=== PATIENT | male | born 1950 | race Caucasian/White ===

== ENCOUNTER 2017-01-06 17:38 | Inpatient (IN) | payer MEDICARE ==
[~2017-01-06] VITALS: Ht 177.8 cm; Wt 79.3 kg
--- NOTE | ~2017-01-06 | HEMODYNAMI ---
PATIENT:BANDAR NORTH MEDICAL RECORD: [id number] : 46 LOCATION:[place] [address] ADMISSION DATE: 01/06/17 Generatedon:01/10/201715:41 Patient name: BANDAR NORTH Patient #: [id number] SSN: : 1950 Date of study: 01/10/2017 Page: Of Hemodynamic Procedure Report Patient Data Patient Demographics Procedure consent was obtained First Name: BANDAR Gender: Male Last Name: CAN : 1950 Patient #: [id number] Age: 66 year(s) Race: Unknown Additional ID: [id number] Contact details Address: [address] [place] [address] ROAD State: [place] City: [place] Zip code: [address] Admission Admission Data Admission Date: 01/06/2017 Admission Time: 23:51 Room #: [facility] Procedure Procedure Types Cath Procedure Diagnostic Procedure NGUYEN Procedure Description Procedure Date Procedure Date: 01/10/2017 Procedure Start Time: 15:18 Procedure End Time: 15:32 Procedure Staff Name Function Bayron Roth MD Performing Physician Janette Brewer RN Nurse Miley Quiñones RT Monitor Seema Aquino RT Monitor Procedure Data Cath Procedure Fluoroscopy Diagnostic fluoroscopy Total fluoroscopy Time: 0 time: 0 min min Diagnostic fluoroscopy Total fluoroscopy dose: 0 dose: 0 mGy mGy Contrast Material Contrast Material Type Amount (ml) Isovue 300 0 Estimated blood loss: 0 ml Procedure Complications No complications Procedure Medications Medication Administration Route Dosage Hydralizine I.V. 10 mg Oxygen NC 2 l/min Refer to Anesthesia Notes for Sedation Medications Hemodynamics Rest Pre Cath Intra NCS Post Cath Vital Signs Time Heart Resp SPO2 NIBP (mmHg) Rhythm Pain Sedation Rate (ipm) (%) Status Level (bpm) 14:39:27 68 20 94 181/115(140) NSR 0 (11) 10(A) , No pain 14:43:52 69 20 93 180/95(156) NSR 0 (11) 10(A) , No pain 14:48:14 65 17 94 193/101(159) NSR 0 (11) 10(A) , No pain 14:53:46 73 22 94 192/104(150) NSR 0 (11) 10(A) , No pain 14:58:12 65 15 93 191/101(168) NSR 0 (11) 10(A) , No pain 15:02:38 66 21 93 210/105(167) NSR 0 (11) 10(A) , No pain 15:07:13 68 16 95 211/109(163) NSR 0 (11) 10(A) , No pain 15:11:47 70 30 93 189/99(169) NSR 0 (11) 10(A) , No pain 15:16:13 52 19 92 194/109(141) NSR 0 (11) 10(A) , No pain 15:20:42 67 21 94 191/94(157) NSR 0 (11) 9(A) , No pain 15:25:08 67 20 94 177/99(145) NSR 0 (11) 9(A) , No pain 15:29:34 67 14 99 169/89(103) NSR 0 (11) 9(A) , No pain 15:35:53 67 24 99 150/68(111) NSR 0 (11) 10(A) , No pain Medications Time Medication Route Dose Verified Delivered Reason Notes Effecti veness by by 14:38:03 Oxygen NC 2 Bayron Vallesie used for l/min Gonzalez Brewer RN procedure 15:09:14 Hydralizine I.V. 10 mg Bayronmandie Savage for Gonzalez Brewer RN hypertension 15:15:07 Refer to Bayron Buffie Anesthesia Gonzalez Brewer RN Notes for Sedation Medications Procedure Log Time Note 14:08:24 Miley Counts RT(R) sent for patient. Start room use. 14:08:25 Time tracking: Regular hours 14:08:29 Plan of Care:Hemodynamics will remain stable., Cardiac rhythm will remain stable., Comfort level will be maintained., Respiratory function will remain adequate., Patient/ family verbilizes understanding of procedure., Procedure tolerated without complication., Recovers from procedure without complications.. 14:34:41 Patient arrived from Other to CCL 2. Patient remains on bed/stretcher for procedure. 14:34:43 Warm blankets applied, and neris hugger turned on for patient comfort. 14:34:43 Correct patient and procedure confirmed by team. 14:34:45 Signed procedure consent form obtained from patient. 14:34:45 ECG and BP/O2 sat monitors applied to patient. 14:35:44 Full Disclosure recording started 14:38:03 Oxygen 2 l/min NC was administered by Janette Brewer RN; used for procedure; 14:38:20 Vital chart was started 14:38:36 Rhythm: sinus rhythm 14:38:43 H&P Date Dictated: 01/10/2017 Within 30 days and on chart.. 14:38:45 Pre-procedure instructions explained to patient. 14:38:45 Pre-op teaching completed and patient verbalized understanding. 14:38:46 Family unavailable. 14:38:53 Patient NPO since Midnight. 14:41:09 Is the patient allergic to Iodine/contrast media? No. 14:41:10 Is patient on blood thinner?No 14:41:12 Patient diabetic? Yes. 14:41:15 Previous problem with sedation/anesthesia? No ? 14:41:15 Snore? Yes 14:41:17 Sleep apnea? Yes 14:41:18 Deviated septum? No 14:41:19 Opens mouth fully? Yes 14:41:20 Sticks out tongue? Yes 14:41:22 Airway obstruction? No ? 14:41:23 Dentures? No ? 14:41:26 Patient pain scale 0/10 ?. 14:41:34 IV patent on arrival in right forearm with 0.9% NaCl at [facility]. 14:41:37 Lab results completed and on chart. 14:41:41 Alarms reviewed by Zacarias Irby 14:45:48 Emory Talbot Surfboard Designer present for NGUYEN. 15:09:14 Hydralizine 10 mg I.V. was administered by Janette Brewer RN; for hypertension; 15:15:07 Refer to Anesthesia Notes for Sedation Medications was administered by Janette Brewer RN; ; 15:17:13 Physician arrived 15:17:13 --------ALL STOP TIME OUT------ 15:17:14 Final Timeout: patient, procedure, and site verified with staff and physician. All members of the team are in agreement. 15:17:27 Physical assessment completed. ASA score P 2 - A patient with mild systemic disease as per Bayron Roth MD. 15:17:31 Sedation plan: TIVA Propofol 15:18:07 Meghan Benjamin present and monitoring patient for TIVA. 15:18:10 Procedure started. 15:18:17 NGUYEN started. 15:30:32 NGUYEN completed. 15:30:48 Procedure ended.(Physican Out) 15:31:09 Fluoroscopy time 00.00 minutes. 15:31:12 Fluoroscopy dose: 0 mGy 15:31:12 Flurop Dose total: 0 15:31:15 Contrast amount:Isovue 300 0ml. 15:31:17 Sharps counted by scrub and verified by R.N. 15:31:22 Post procedure rhythm: unchanged. 15:31:24 Estimated blood loss: 0 ml 15:31:26 Post procedure instruction explained to patient.Patient verbalizes understanding. 15:31:26 Patient needs reinforcement of post procedure teaching. 15:31:33 Procedure and supply charges have been captured, reviewed, submitted and are correct. 15:31:37 Procedure Complication : No complications 15:31:39 Vital chart was stopped 15:31:40 See physician's report for complete and final results. 15:32:13 Report given to Med II. 15:32:16 Patient transfered to Med II with Stretcher. 15:32:39 Procedure ended. 15:32:39 Full Disclosure recording stopped 15:32:44 End room use (Document Last) Signature Audit [place] Stage Time Signature Unsigned Intra-Procedure 01/10/2017 Seema Aquino 3:41:27 PM RT(R) Signatures Monitor : Miley Signature : Counts RT Date : Time : Monitor : Seema Aquino RT Signature : Date : Time : [address] [place] [address]
[2017-01-06 22:29] LABS: BASOPHILS 0.7 % (0-2); EOSINOPHILS 0.7 % (0-7); HEMATOCRIT 27.5 % (42.0-54.0); HEMOGLOBIN 8.3 g/dL (13.5-17.5); IMMATURE GRANULOCYTES 0.2 % (0-5); LYMPHOCYTES 26.8 % (15-50); MCH 24.3 pg (26.0-34.0); MCHC 30.2 g/dL (31.0-37.0); MCV 80.6 fL (80.0-100.0); MEAN PLATELET VOLUME 9.2 fL (7.4-10.4); MONOCYTES 6.8 % (2-11); NEUTROPHILS 64.8 % (40-80); PLATELET COUNT 266 10x3/uL (130-400); RBC 3.41 10x6/uL (4.20-6.10); RDW 14.9 % (11.5-14.5); WBC 4.3 10x3/uL (4.8-10.8)
[2017-01-06 22:56] LABS: ALBUMIN 3.4 g/dL (3.4-5.0); ANION GAP 12.3 mmol/L (8-16); BILIRUBIN - TOTAL 0.54 mg/dL (0.2-1.3); CARBON DIOXIDE 29.8 mmol/L (21.0-32.0); CREATININE - SERUM 1.2 mg/dL (0.6-1.3); POTASSIUM - SERUM 3.1 mmol/L (3.5-5.1); PROTEIN - SERUM 6.8 g/dL (6.4-8.2)
[2017-01-06 23:18] LABS: APPEARANCE CLEAR (CLEAR); BILIRUBIN NEGATIVE (NEGATIVE); COLOR YELLOW (YELLOW); GLUCOSE NEGATIVE (NEGATIVE); KETONE NEGATIVE (NEGATIVE); LEUKOCYTE ESTERASE NEGATIVE (NEGATIVE); NITRITE NEGATIVE (NEGATIVE); PROTEIN 2+ mg/dL (NEGATIVE); UROBILINOGEN NORMAL (NORMAL)
--- NOTE | 2017-01-07 00:20 | NUR ---
RECEIVED PATIENT FROM ER VIA WHEELCHAIR TO ROOM 1218 ACCOMPANIED BY HOSPITAL STAFF. INTRODUCED SELF. V/S TAKEN. INITIAL ADMISSION ASSESSMENT AND HISTORY DONE. STATUS Dx: CHF/SCROTAL SWELLING. SALINE LOCK TO L AC INTACT. O2 2L/NC. ORIENTED TO ROOM AND BED CONTROLS. PLAN OF CARE INITIATED.
[2017-01-07 00:22] VITALS: BP 154/81; BMI 33.7
--- NOTE | 2017-01-07 02:35 | NUR ---
HOOKED UP TO TELEMETRY. SINUS BRADYCARDIA--58/min.
--- NOTE | 2017-01-07 04:30 | NUR ---
EYES CLOSED. LEFT UNDISTURBED.
--- NOTE | 2017-01-07 06:27 | NUR ---
MEDICAL POLICY SPECIALIST HERE TO DRAW AM LAB.
[2017-01-07 06:59] LABS: BASOPHILS 0.5 % (0-2); EOSINOPHILS 0.5 % (0-7); HEMATOCRIT 27.1 % (42.0-54.0); HEMOGLOBIN 8.3 g/dL (13.5-17.5); IMMATURE GRANULOCYTES 0.2 % (0-5); MCH 24.6 pg (26.0-34.0); MCHC 30.6 g/dL (31.0-37.0); MCV 80.2 fL (80.0-100.0); MEAN PLATELET VOLUME 9.1 fL (7.4-10.4); MONOCYTES 9.5 % (2-11); NEUTROPHILS 65.3 % (40-80); PLATELET COUNT 248 10x3/uL (130-400); RBC 3.38 10x6/uL (4.20-6.10); RDW 15.1 % (11.5-14.5); WBC 4.1 10x3/uL (4.8-10.8)
[2017-01-07 07:15] VITALS: BP 145/54
[2017-01-07 09:34] VITALS: Ht 177.8 cm; Wt 79.3 kg
[2017-01-07 10:14] LABS: % SATURATION 5 % (15-55); IRON 24 ug/dl (35-150); TOTAL IRON BIND CAPACITY 443 ug/dl (260-445); UNSAT IRON BIND CAPACITY 419 ug/dl (150-375)
[2017-01-07 10:24] LABS: THYROID STIMULATING HORMONE 3.42 uIU/mL (0.36-3.74)
--- NOTE | 2017-01-07 10:25 | NUR ---
MR NORTH CALLED ME TO ROOM FOR STAND BY ASSISTANCE TO BATHROOM. PT USED WALKER AND TOLERATED WELL. PT VOIDED. ASSISTED BACK TO BED. BED IS LOW, SIDE RAILS UP X 2 AND CALL LIGHT IN REACH.
--- NOTE | 2017-01-07 11:30 | NUR ---
PT IS HERE TO EVALUATE PT AMBULATING WITH WALKER. PT WALKING IN HALLWAYS. TOLERATING VERY WELL.
--- NOTE | 2017-01-07 12:33 | NUR ---
PT IS UP TO BATHROOM WITH WALKER AND ASSISTANCE. HAD BM. [PT BACK TO BEDSIDE TO EAT.
[2017-01-07 19:25] VITALS: BP 142/72
--- NOTE | 2017-01-07 19:25 | NUR ---
ASSESSMENT PER FLOW SHEET.PT WITHOUT DISTRESS.DENIES PAIN AT PRESENT. SCROTAL AREA ELEVATED. FALL BAND ON AND DOOR OPEN TO MONITOR PT.URINAL PROVIDED. CALL LIGHT IN REACH
--- NOTE | 2017-01-07 20:00 | NUR ---
ASSISTED TO THE BATHROOM AND BACK TO BED. AMBULATED WITH A WALKER.
--- NOTE | 2017-01-07 20:27 | NUR ---
RT HERE TO GIVE BREATHING TREATMENT.
--- NOTE | 2017-01-07 21:19 | NUR ---
FSBS 168mg/dl. 2units HUMALOG GIVEN PER LOW RESISTANCE SCALE.
[2017-01-08] VITALS (9 sets, daily range): BP systolic 153–183; BP diastolic 70–89
--- NOTE | 2017-01-08 00:07 | NUR ---
V/S RE-CHECKED. BP 158/71. URINAL EMPTIED.
--- NOTE | 2017-01-08 04:54 | NUR ---
SITTING ON SIDE OF BED. HAT MODEL HERE TO DRAW AM LAB/V/S TAKEN. BP 156/70. URINAL EMPTIED.
[2017-01-08 05:44] LABS: BASOPHILS 0.2 % (0-2); EOSINOPHILS 0.4 % (0-7); IMMATURE GRANULOCYTES 0.2 % (0-5); LYMPHOCYTES 18.7 % (15-50); MCH 23.8 pg (26.0-34.0); MCV 79.3 fL (80.0-100.0); MONOCYTES 8.3 % (2-11); NEUTROPHILS 72.2 % (40-80); PLATELET COUNT 219 10x3/uL (130-400); RDW 14.8 % (11.5-14.5)
[2017-01-08 05:47] LABS: WBC 5.6 10x3/uL (4.8-10.8)
[2017-01-08 05:48] LABS: HEMOGLOBIN 6.9 g/dL (13.5-17.5)
--- NOTE | 2017-01-08 05:57 | NUR ---
CRITICAL HGB OF 6.9. CALL PLACED TO KEIKO HANNA.
--- NOTE | 2017-01-08 06:03 | NUR ---
JACQUES CANADA APN RETURNED CALL WITH NEW ORDERS.
[2017-01-08 06:34] LABS: ALBUMIN 2.8 g/dL (3.4-5.0); ANION GAP 8.4 mmol/L (8-16); BILIRUBIN - TOTAL 0.41 mg/dL (0.2-1.3); CALCIUM 9.8 mg/dL (8.5-10.1); CREATININE - SERUM 1.1 mg/dL (0.6-1.3); POTASSIUM - SERUM 3.4 mmol/L (3.5-5.1); PROTEIN - SERUM 5.9 g/dL (6.4-8.2); THYROID STIMULATING HORMONE 3.54 uIU/mL (0.36-3.74)
[2017-01-08 07:11] LABS: BASOPHILS 0.4 % (0-2); EOSINOPHILS 0.5 % (0-7); HEMATOCRIT 25.6 % (42.0-54.0); HEMOGLOBIN 7.9 g/dL (13.5-17.5); IMMATURE GRANULOCYTES 0.2 % (0-5); LYMPHOCYTES 15.8 % (15-50); MCH 24.5 pg (26.0-34.0); MCHC 30.9 g/dL (31.0-37.0); MCV 79.3 fL (80.0-100.0); MEAN PLATELET VOLUME 8.8 fL (7.4-10.4); NEUTROPHILS 76.1 % (40-80); PLATELET COUNT 214 10x3/uL (130-400); RBC 3.23 10x6/uL (4.20-6.10); RDW 14.8 % (11.5-14.5); WBC 5.6 10x3/uL (4.8-10.8)
--- NOTE | 2017-01-08 07:30 | NUR ---
PT IS RECEIVED THIS AM SITTING UP ON SIDE OF BED. WAITING FOR BREAKFAST. VSS. SALINE LOCK LAC PATENT. GEN- AWAKE AND ALERT. LUNGS- CLEAR. HEART- RRR. ABD-SOFT, NONTENDER. EXT- EDEMA NOTED. BED IS LOW, SIDE RAILS UP X 2 AND CALL LIGHT IN REACH.
[2017-01-08 10:18] LABS: FOLATE (FOLIC ACID) - SERUM 13.3 ng/mL (>3.0)
--- NOTE | 2017-01-08 10:30 | NUR ---
PT IS SLEEPING. BED IS LOW, SIDE RAILS UP X 2 CALL LIGHT IN REACH.
--- NOTE | 2017-01-08 14:30 | NUR ---
PT RECEIVING BREATHING TREATMENT AT THIS TIME. TOLERATING WELL.
--- NOTE | 2017-01-08 17:04 | NUR ---
PT'S BS Was 158. 2units of humalog insulin given.
--- NOTE | 2017-01-08 17:37 | EC ---
PATIENT:BANDAR NORTH DATE OF SERVICE: 01/06/17 SEX: M MEDICAL RECORD: [id number] DATE OF : [birth year] [facility] AGE OF PATIENT: 66 ADMISSION DATE: 01/06/17 REFERRING PHYSICIAN: INTERPRETING PHYSICIAN: YOBANY ROTH MD ECHOCARDIOGRAM REPORT ECHO CHARGES 4 ECHO COMPLETE CLINICAL DIAGNOSIS: CHF HX HTH/CHF ECHOCARDIOGRAPHIC MEASUREMENTS (adult normal given) AC root (d.<3.7cm) 3.9 cm LV Septum d (<1.2 cm> 2.0 cm Valve Excursion 2.3 cm LV Septum (systole) 2.5 cm Left Atria (s.<4.0cm> 4.8 cm LVPW d(<1.2cm) 2.1 cm RV (d.<2.3cm) 6.1 cm LVPW (sytole) 2.0 cm LV diastole(<5.6CM) 5.4 cm MV E-F(>70mm/sec) cm LV systole 2.3 cm LVOT Diameter 2.4 cm MV exc.(>10mm) 1.8 cm Est.ejection fraction (50-75%) % Pericardial Effusion Y DOPPLER: LVIT cm/sec A 85.0 cm/sec E 109 cm/sec LA cm/sec RVSP 53 mmHg LVOT 138 cm/sec AOP1/2T m/s Asc. Ao 214 cm/sec RVOT 97 cm/sec RA cm/sec PA 145 cm/sec AV Gradient Peak 18.28mmHg AV Mean 8.48 mmHg AV Area 2.9 cm MV Gradient Peak 10.21mmHg MV Mean 3.30 mmHg MV Area cm COMMENTS: Assistant Store Manager Operations: Pino ROONEY Booking Manager: 4 Dr. Roth TAPE# PACS DATE OF SERVICE: 01/07/2017 Echocardiographic Report FINDINGS: 1. Left ventricle has moderate concentric left ventricular hypertrophy. Inflow characteristics into the left ventricle appeared to be normal grossly and there does not appear to be any significant regional wall motion abnormalities. 2. The right ventricle is enlarged in the moderate to severe enlargement range. The overall function of the RV appears to be normal. ECHOCARDIOGRAM REPORT [id number] BANDAR NORTH 3. The pulmonic valve is not well visualized. There is mild pulmonic regurgitation. 4. The aortic valve is mildly sclerotic. There is no evidence of significant aortic valve regurgitation or stenosis. 5. The mitral valve is grossly normal. 6. The right ventricular systolic pressure is elevated between 40 and 50 mmHg. 7. Pericardium shows a mild to moderate pericardial effusion. We will have Respimedic measurements, but there does not appear to be any gross tamponade physiology; however, it would be reasonable to repeat to make sure. 8. The interatrial septum is very mobile and even looks as if there may be an interatrial septal aneurysm. 9. The left atrium has what appears to be a mass, it is more sessile in nature than pedunculated, seen best in only 2 views, but does not appear to be artifact. 10. The IVC is not demonstrated on this study. CONCLUSIONS: This patient has hypertensive heart disease with some evidence of mild left atrial enlargement and right atrial and right ventricular enlargement with moderate pulmonary hypertension. Of note is the possibility of a mass in the left atrium itself. At this point, I would recommend maybe going forward with a transesophageal echocardiogram if clinically appropriate. TRANSINT:[id number] Voice Confirmation ID: [id number] DOCUMENT ID: [id number] YOBANY ROTH MD at 1737 CC: [id number] DICTATION DATE: 01/07/17 1655 GARAGE WORKER: 01/07/172045 ADM IN [facility] [address] [place] [address]
--- NOTE | 2017-01-08 19:13 | NUR ---
PT IS SLEEPING. BED IS LOW, SIDE RAILS UP X 2 . CALL LIGHT IN REACH.
--- NOTE | 2017-01-08 19:35 | NUR ---
SPOKE TO GUDELIA CANADA, NURSE PRACTITIONER, PRBC VERIFIED FOR ADMINISTRATION, ORDERS RECEIVED TO ADM 2 UNITS AND ADM LASIX 20MG AFTER FIRST UNIT X 1 DOSE
--- NOTE | 2017-01-08 19:42 | NUR ---
PM ROUNDS MADE, UPON ENTERING ROOM, PT IS STANDING AT SIDE OF BED, PT REPORTS NEEDING TO HAVE A BM, PT INST TO USE CALL LIGHT AND WALKER WHEN NEEDING TO GET UP, PT VERBALIZES UNDERSTANDING, ASSISTED PT TO BR, PT HAD LARGE BROWN BM, PT CLEANS SELF UP, PT BACK TO BED, STOOL SAMPLE COLLECTED, EMPTIED 500 MLS OF CLEAR YELLOW URINE FROM URINAL, INFORMED PT THAT HE WILL BE GETTING BLOOD, PT VERBALIZES UNDERSTANDING, INQUIRES ABOUT HOW MANY, INFORMED PT 2 UNIT, PT DENIES FURTHER QUESTIONS
--- NOTE | 2017-01-08 19:48 | NUR ---
LAB NOTIFIED FOR BLOOD
--- NOTE | 2017-01-08 19:49 | NUR ---
SPOKE TO CORBY HATHAWAY RN, REGARDING RATE OF INFUSION FOR THIS PT, SHE SAID TO RUN IT NO MORE THAN 125ML/HR DUE TO CHF
--- NOTE | 2017-01-08 20:45 | NUR ---
ASSESSMENT PER FLOW SHEET, VS PER AJAY ESPINOZA, RN, PT REPORTS FLATUS, VOIDING BY SELF WITH NO DIFFICULTY, CONSENTS SIGNED AND WITNESSED
--- NOTE | 2017-01-08 20:55 | NUR ---
AJAY ESPINOZA RN OBTAINED FSBS, ADM 2100 MEDS PER MD ORDERS, AJAY ESPINOZA RN ADM INSULIN, VERIFIED PER THIS RN AND AJAY ESPINOZA RN, RESP TO ROOM FOR TREATMENT
--- NOTE | 2017-01-08 21:40 | NUR ---
FIRST UNIT OF PRBC STARTED, VS INITIATED, VERIFIED PER THIS RN AND AJAY ESPINOZA, RN, AJAY ESPINOZA RN CONTINUES AT BEDSIDE
--- NOTE | 2017-01-08 21:55 | NUR ---
FIRST UNIT INFUSING, NO SIGNS OR SYMPTOMS FROM TRANSFUSION, AJAY ESPINOZA, JAYLIN IN ROOM FOR MONITORING
--- NOTE | 2017-01-08 22:25 | NUR ---
PT AWAKE, VS CONTINUE, DENIES NEEDS OR PAIN
--- NOTE | 2017-01-08 23:10 | NUR ---
IV SITE NOTED TO BE LEAKING, SMALL KNOT NOTED AT END OF IV SITE, IV NOT PATENT AT THIS TIME, IV REMOVED, TIP INTACT, PRESSURE HELD, BANDAID APPLIED, INFORMED PT I WILL NEED TO START A NEW IV, PT VERBALIZES UNDERSTANDING
--- NOTE | 2017-01-08 23:30 | NUR ---
EUGENIA AMANDA RN ON UNIT TO START AN IV, PT IS USING THE URINAL AT THIS TIME, INST TO USE CALL LIGHT WHEN FINISHED
--- NOTE | 2017-01-08 23:40 | NUR ---
18 GAUGE IV STARTED PER EUGENIA AMANDA RN, FIRST ATTEMPT, IN RIGHT FA, FLSUHED WITH NO DIFFICULTY, PRBC RESTARED AT 125 ML/HR, VS RESTARTED, EMPTIED 300 MLS OF YELLOW URINE FROM URINAL, PT DENIES NEEDS OR PAIN AT THIS TIME
[2017-01-09] VITALS (14 sets, daily range): BP systolic 145–182; BP diastolic 58–88
--- NOTE | 2017-01-09 00:15 | NUR ---
PT RESTING WITH EYES CLOSED, RESP QUIET, NO DISTRESS NOTED, LEFT UNDISTURBED AT THIS TIME, VS CONTINUE
--- NOTE | 2017-01-09 01:00 | NUR ---
FIRST UNIT FINISHED INFUSING, PT DENIES ANY REACTION TO TRANSFUSION
--- NOTE | 2017-01-09 01:29 | NUR ---
FLUSH COMPLETED AFTER FIRST UNIT, BLOOD TUBING CHANGED, NS INFUSING AT 50ML/HR, ADM LASIX 20MG SIVP PER MD ORDERS, SEE EMAR, INFORMED PT THAT WE WILL START 2ND UNIT IN ABOUT 30 MINUTES, PT VERBALIZES UNDERSTANDING, DENIES NEEDS OR PAIN AT THIS TIME
--- NOTE | 2017-01-09 02:00 | NUR ---
PT FINISHED USING THE URINAL, EMPTIED 100 MLS FROM URINAL, INFORMED PT THAT 2ND UNIT WILL BEGIN
--- NOTE | 2017-01-09 02:05 | NUR ---
Second unit of PRBC's started. VS initiated. Verified by this nurse, Ute Denton RN and Saba Denton RN. This nurse, Ute Denton RN remains in room with patient x 15 minutes for observation.
--- NOTE | 2017-01-09 03:26 | NUR ---
PT POOL NURSE LIGHT, PT REPORTS KNOCKING CUP OF WATER OFF OF BEDSIDE TABLE WHEN REACHING FOR THE URINAL, INFORMED PT THAT WAS OK, CUP PICKED UP, PT REQUESTED AND SERVED FRESH H20, PT DENIES FURTHER NEEDS
--- NOTE | 2017-01-09 03:50 | NUR ---
PT FELT CUTTING MACHINE OPERATOR, PT REPORTS SPILLING SOME URINE ON HIMSELF, PT CLEANED UP WITH WET WARM WASH CLOTHS, PINK PAD AND TOP SHEET CHANGED, PT STATES "I STILL NEED TO FINISH PEEING", PT HANDED URINAL, VOIDED 195 MLS OF YELLOW URINE BY SELF WITH NO DIFFICULTY, EMPTIED URINAL, PT REQUESTED AND PROVIDE BOX OF TISSUE, PT DENIES FURTHER NEEDS OR PAIN, VS CONTINUE
--- NOTE | 2017-01-09 04:30 | NUR ---
Second unit of PRBC's complete.
--- NOTE | 2017-01-09 05:25 | NUR ---
ADM 0600 MED PER MD ORDERS, SEE EMAR WITH FRESH H20, AJAY ESPINOZA RN OBTAINS LAST SET OF VS AFTER INFUSION OF PRBC AND DOES I&O'S, PT DENIES NEEDS OR PAIN AT THIS TIME
[2017-01-09 06:05] LABS: BASOPHILS 0.4 % (0-2); HEMATOCRIT 27.5 % (42.0-54.0); HEMOGLOBIN 8.8 g/dL (13.5-17.5); IMMATURE GRANULOCYTES 0.2 % (0-5); LYMPHOCYTES 14.4 % (15-50); MCH 25.3 pg (26.0-34.0); MEAN PLATELET VOLUME 8.7 fL (7.4-10.4); MONOCYTES 8.1 % (2-11); NEUTROPHILS 75.9 % (40-80); PLATELET COUNT 194 10x3/uL (130-400); RBC 3.48 10x6/uL (4.20-6.10); RDW 14.9 % (11.5-14.5); WBC 5.1 10x3/uL (4.8-10.8)
--- NOTE | 2017-01-09 06:13 | NUR ---
FSBS OBTAINED PER AJAY ESPINOZA RN, SEE FLOW SHEET
[2017-01-09 06:38] LABS: ANION GAP 8.6 mmol/L (8-16); BILIRUBIN - TOTAL 0.9 mg/dL (0.2-1.3); CALCIUM 9.9 mg/dL (8.5-10.1); CARBON DIOXIDE 33.9 mmol/L (21.0-32.0); CREATININE - SERUM 1.1 mg/dL (0.6-1.3); POTASSIUM - SERUM 3.5 mmol/L (3.5-5.1); PROTEIN - SERUM 6.3 g/dL (6.4-8.2)
--- NOTE | 2017-01-09 06:53 | NUR ---
PT PARTS SALES MANAGER LIGHT, PT UP TO BR VIA WALKER WITH ASSISTANCE, PT TO COMMODE, EMPTIED 250 MLS FROM URINAL, PT INST TO USE CALL LIGHT WHEN FOR ANY ASSISTANCE AND WHEN FINISHED, PT VERBALIZES UNDERSTANDING
--- NOTE | 2017-01-09 07:00 | NUR ---
SHIFT REPORT TO JC ZULUAGA RN
--- NOTE | 2017-01-09 08:29 | NUR ---
received in room sitting on side of bed. alert. oriented. ns lock to rt forearm. denies pain o2 on nc at 2l/min. abd soft +bs x4. resp non-laobred. no distress noted.
--- NOTE | 2017-01-09 11:25 | NUR ---
SITTING UP ON SIDE OF BED. ALERT ORIENTATED TO SURROUNDINGS. HAS NO NEEDS AT THIS TIME.
--- NOTE | 2017-01-09 13:00 | NUR ---
PT IS UP TO BATHROOM AND HAD A BM. THEN HE WAS ASSISTED TO SHOWER. PT TOLERATED WELL. LINENS CHANGED , CLEAN GOWN AND PT BACK TO BED. ELECTRODES CHANGED ON TELEMETRY. SALINE LOCK WAS COVERED. THEN REMOVED COVER AFTER SHOWER.
--- NOTE | 2017-01-09 13:28 | NUR ---
MR PIERCE IS SITTING ON THE SIDE OF THE BED. OFFERS NO COMPLAINTS.
--- NOTE | 2017-01-09 13:42 | NUR ---
* Is the patient Alert and Oriented? Yes 0 * How many steps to enter\exit or inside your home? 0 0 * Pharmacy [facility] 0 * Preadmission Environment Assisted Living 0 * Facility Name [facility] [phone] * ADLs Partial Dependent 0 * Partial ADLs (Assistance needed) Ambulation Bathing Medication Management 0 * Equipment Cane CPAP Rolling Walker Shower Chair 0 * Additional services required to return to the preadmission environment? Yes 0 * Can the patient safely return to the preadmission environment? Yes 0 * Has this patient been hospitalized within the prior 30 days at any hospital? No Patient Name: BANDAR NORTH Admission Status: ER Accout number: [id number] Admission Date: 01-06-2017 : 1950 Admission Diagnosis: Attending: CRISTIAN CHAN Current LOS: 3 Anticipated DC Date: 01-10-2017 Planned Disposition: Assisted Living Primary Insurance: MEDICARE A & B Discharge Planning Comments: CM met with patient to assess dc plans/needs. Patient states he lives at [facility]. He primarily uses a walker for mobility but also has a cane. He requires assistance with bathing. He states he goes to the dining room for meals. At dc, he will return to [facility]. Spoke with Miri at [facility] ([phone]) - she states their transport van will pick him up at discharge. She requests referral be sent to [facility] for physical therapy. Patient is agreeable. SHA signed for [facility]. Initial referral faxed. CM will follow. Seo Manager: Saba Lopez
--- NOTE | 2017-01-09 14:36 | NUR ---
NORTH UP TO BATHROOM TO HAVE A BM. USED WALKER.
--- NOTE | 2017-01-09 18:19 | NUR ---
PT IS RESTING IN BED. OFFERS NO COMPLAINTS. BED IS LOW, SIDE RAILS UP X 3 AND CALL LIGHT IN REACH. PT ATE A GOOD DINNER.
--- NOTE | 2017-01-09 19:30 | NUR ---
PM ROUNDS MADE, INFORMED PT THAT I WILL RETURN SHORTLY TO DO ASSESSMENT, PT VERBALIZES UNDERSTANDING, DENIES NEEDS AT THIS TIME
--- NOTE | 2017-01-09 20:25 | NUR ---
PT RECEIVED RESP TREATMENT AT THIS TIME
--- NOTE | 2017-01-09 20:53 | NUR ---
ASSESSMENT PER FLOW SHEET, VS OBTAINED, SALINE LOCK IN RIGHT FA INTACT WITH NO REDNESS OR EDEMA, EMPTIED 400 MLS OF CLEAR YELLOW URINE FROM URINAL, PT REPORTS THAT IS 2 VOIDS, TELEMETRY IN PLACE, LANNY ZURITA RN OBTAINS FSBS AND ADM 2100 MEDS PER MD ORDERS, SEE EMAR, SNACK PROVIDED, PT DENIES FURTHER NEEDS OR PAIN AT THIS TIME
--- NOTE | 2017-01-09 21:25 | NUR ---
PT STANDING AT SIDE OF BED, PT STATES "I JUST NEEDED TO STAND UP FOR A FEW MINUTES", PT INST ON FALL PRECAUTIONS, PT VERBALIZES UNDERSTANDING, DENIES NEEDS OR PAIN AT THIS TIME
--- NOTE | 2017-01-09 22:26 | NUR ---
PT AWAKE, LAYING IN BED, WATCHING TV, DENIES NEEDS OR PAIN AT THIS TIME, BED IN LOW POSITION, SIDE RAILS X 2, CALL LIGHT IN REACH
--- NOTE | 2017-01-09 23:20 | NUR ---
PT AWAKE, VS OBTAINED, EMPTIED URINAL, SALINE LOCK FLUSHED, ADM LASIX SIVP OVER 4 MINUTES, SALINE LOCK FLUSHED, PT DENIES NEEDS OR PAIN AT THIS TIME, BED IN LOW POSITION, SIDE RAILS X 2, CALL LIGHT IN REACH
--- NOTE | 2017-01-10 00:28 | NUR ---
PT RESTING WITH EYES CLOSED, RESP QUIET, NO DISTRESS NOTED, LEFT UNDISTUREBED AT THIS TIME
--- NOTE | 2017-01-10 02:18 | NUR ---
PT INSIDE CONTRACTOR SALES LIGHT, PT UP IN BR , PT REPORTS BM, PT BACK TO BED, EMPTIED 250 MLS FROM URINAL, PT DENIES NEEDS OR PAIN, BED IN LOW POSITION, SIDE RAILS X 2, CALL LIGHT IN REACH
--- NOTE | 2017-01-10 02:53 | NUR ---
PT GLASSWARE SELECTOR LIGHT, UP IN BR, REPORTS HE IS HAVING TROUBLE VOIDING, PT INST TO GET BACK INTO BED, BLADDER SCAN DONE, 886 MLS NOTED, INFORMED PT THAT I WILL CALL THE DOCTOR, PT VERBALIZES UNDERSTANDING
--- NOTE | 2017-01-10 02:55 | NUR ---
CALLED ANSWERING SERVICE, JACQUES CANADA NP CRIMINAL JUSTICE SOCIAL WORKER GERMAN, LEFT MESSAGE WITH ANSWERING SERVICE FOR HER TO CALL
--- NOTE | 2017-01-10 03:03 | NUR ---
JACQUES CANADA NP, CALLS UNIT, REPORT OF PT UNABLE TO VOID AND AMOUNT FROM BLADDER SCANNER, ORDERS TO PLACE YARBROUGH
[2017-01-10 03:30] VITALS: BP 170/90
--- NOTE | 2017-01-10 03:30 | NUR ---
VS OBTAINED, INFORMED PT THAT WE WILL BE INSERTING A CATHETER, PT VERBALIZES UNDERSTANDING
--- NOTE | 2017-01-10 03:36 | NUR ---
16 FR YARBROUGH PLACED USING STERILE TECHNIQUE WITH IMMEDIATE RETURN OF CLEAR LIGHT YELLOW URINE. TOLERATED WELL. IMMEDIATE RETURN OF 350 MLS URINE, YARBROUGH CLAMPED FOR 5 MINUTES, RELEASED THEN RECLAMPLED AN ADDITIONAL 5 MINUTES AND REPEATED X2 TO PREVENT BLADDER SPASMS. PT VERBALIZED RELIEF OF DISCOMFORT FOLLOWING PLACEMENT OF YARBROUGH. INSTRUCTED PT TO USE CL FOR ASSISTANCE OOB AND INFECTION PREVENTION TECHNIQUES WHILE YARBROUGH CATHETER IS IN PLACE, VERBALIZES UNDERSTANDING AND DENIES QUESTIONS. 900 MLS CLEAR LIGHT YELLOW URINE EMPTIED OUT OF YARBROUGH TOTAL. BED PLACED IN LOW POSITION WITH UPPER SIDE RAILS RAISED X2. CL AND PHONE PLACED WITHIN PT REACH. WILL CONT TO MONITOR AND ASSIST PRN.
--- NOTE | 2017-01-10 05:04 | NUR ---
PT AWAKE, EMPTIED 1000 MLS OF BLOOD TINGED URINE FROM CATHETER, PT ENC TO REST SOME, PT VERBALIZES UNDERSTANDING, DENIES NEEDS OR PAIN AT THIS TIME
--- NOTE | 2017-01-10 06:10 | NUR ---
PT RESTING WITH EYES CLOSED, AROUSES TO SOFT VERBAL STIMULATION, ADM 0600 MED AND FSBS OBTAINED, PER MD ORDERS, SEE EMAR, PT UP TO BEDSIDE SCALE, YARBROUGH CATH DRAINING LIGHTLY BLOOD TINGED URINE, EMPTIED 600 MLS FROM YARBROUGH CATHETER, PT DENIES NEEDS OR PAIN AT THIS TIME
--- NOTE | 2017-01-10 07:04 | NUR ---
SHIFT REPORT TO JC ZULUAGA RN
[2017-01-10 07:17] LABS: HEMATOCRIT 29.3 % (42.0-54.0); HEMOGLOBIN 9.1 g/dL (13.5-17.5); LYMPHOCYTES 10.7 % (15-50); MCH 24.6 pg (26.0-34.0); MCHC 31.1 g/dL (31.0-37.0); MCV 79.2 fL (80.0-100.0); PLATELET COUNT 197 10x3/uL (130-400); RDW 14.8 % (11.5-14.5); WBC 5.7 10x3/uL (4.8-10.8)
[2017-01-10 07:30] VITALS: BP 164/85
[2017-01-10 07:40] LABS: ALBUMIN 3.1 g/dL (3.4-5.0); ANION GAP 10.2 mmol/L (8-16); BILIRUBIN - TOTAL 0.63 mg/dL (0.2-1.3); CALCIUM 9.9 mg/dL (8.5-10.1); CARBON DIOXIDE 32.4 mmol/L (21.0-32.0); CREATININE - SERUM 1.2 mg/dL (0.6-1.3); POTASSIUM - SERUM 3.6 mmol/L (3.5-5.1); PROTEIN - SERUM 6.8 g/dL (6.4-8.2)
--- NOTE | 2017-01-10 09:51 | NUR ---
AWAKEN FOR MEDS . NO COMPLAINTS. NPO BUT ONLY SIPS FOR MEDS H2O
--- NOTE | 2017-01-10 16:16 | NUR ---
RECIEVED FROM TRANSFORMER COIL WINDER BY PAOLA. VS WNL. DR. KHAN AT BS. OREINTED TO ROOM. CALL LIGHT IN REACH. WILL CONT. PLAN OF CARE.
[2017-01-10 16:55] VITALS: BP 156/74
[2017-01-10 19:00] VITALS: BP 150/76
[2017-01-11] VITALS: BP 138/68
[2017-01-11 04:00] VITALS: BP 157/72
[2017-01-11] MEDS ORDERED: TOPROL XL200 MG PO (04:41)
[2017-01-11] MEDS ORDERED: LONITEN10 MG PO (04:42)
[2017-01-11] MEDS ORDERED: ZOLOFT100 MG PO (04:42)
[2017-01-11] MEDS ORDERED: VITAMIN D250000 UNIT PO (04:42)
[2017-01-11] MEDS ORDERED: BAYER CHEWABLE81 MG PO (04:43)
[2017-01-11] MEDS ORDERED: NORVASC10 MG PO (04:43)
[2017-01-11] MEDS ORDERED: ROCALTROL0.25 MCG PO (04:43)
[2017-01-11] MEDS ORDERED: LISINOPRIL5 MG PO (04:44)
[2017-01-11] MEDS ORDERED: METOLAZONE5 MG PO (04:44)
[2017-01-11] MEDS ORDERED: TRICOR145 MG PO (04:44)
[2017-01-11] MEDS ORDERED: LASIX80 MG PO (04:45)
[2017-01-11] MEDS ORDERED: REQUIP0.5 MG PO (04:46)
[2017-01-11] MEDS ORDERED: K-TAB10 MEQ PO (04:50)
[2017-01-11 05:29] LABS: HEMATOCRIT 24.1 % (42.0-54.0); HEMOGLOBIN 7.7 g/dL (13.5-17.5); LYMPHOCYTES 11.7 % (15-50); MCH 25.1 pg (26.0-34.0); MCV 78.5 fL (80.0-100.0); MEAN PLATELET VOLUME 9.3 fL (7.4-10.4); PLATELET COUNT 201 10x3/uL (130-400); RBC 3.07 10x6/uL (4.20-6.10); WBC 5.3 10x3/uL (4.8-10.8)
[2017-01-11 05:31] LABS: ALBUMIN 2.7 g/dL (3.4-5.0); ALKALINE PHOSPHATASE 41 U/L (46-116); ALT (SGPT) 16 U/L (10-68); CALC OSMOLALITY 290 mosm/kg (275-300); CALCIUM 9.8 mg/dL (8.5-10.1); CARBON DIOXIDE 29.4 mmol/L (21.0-32.0); CHLORIDE - SERUM 105 mmol/L (98-107); GLUCOSE 96 mg/dL (74-106); POTASSIUM - SERUM 3.4 mmol/L (3.5-5.1); PROTEIN - SERUM 5.9 g/dL (6.4-8.2); SODIUM 142 mmol/L (136-145); UREA NITROGEN 34 mg/dL (7-18); eGFR NON AFRICAN AMERICAN 79 mL/min (90-120)
--- NOTE | 2017-01-11 07:21 | NUR ---
PT SITTING UP IN BED WITH STUDENT NURSE AT BEDSIDE PERFORMING ASSESSMENT WILL CONT TO MONITOR
[2017-01-11 07:27] LABS: MAGNESIUM - SERUM 1.9 mg/dL (1.8-2.4)
[2017-01-11 08:39] VITALS: BP 163/76
--- NOTE | 2017-01-11 09:15 | NUR ---
PT HAS ELEVATED TEMP. PAGED CERTIFIED NURSE PRACTITIONER FOR TYLENOL ORDER.
[2017-01-11 13:00] VITALS: BP 160/92
[2017-01-11 17:31] VITALS: BP 177/69
--- NOTE | 2017-01-11 17:57 | NUR ---
HELPED PT BACK FROM BATHROOM DENIES ANY NEEDS AT THIS TIME
[2017-01-11 19:00] VITALS: BP 178/76
[2017-01-12] VITALS (7 sets, daily range): BP systolic 171–191; BP diastolic 71–82
[2017-01-12 04:52] LABS: BASOPHILS 0.2 % (0-2); EOSINOPHILS 0.7 % (0-7); HEMATOCRIT 25.3 % (42.0-54.0); HEMOGLOBIN 7.7 g/dL (13.5-17.5); IMMATURE GRANULOCYTES 0.2 % (0-5); LYMPHOCYTES 19.4 % (15-50); MCH 24.5 pg (26.0-34.0); MCHC 30.4 g/dL (31.0-37.0); MCV 80.6 fL (80.0-100.0); MONOCYTES 9.4 % (2-11); NEUTROPHILS 70.1 % (40-80); PLATELET COUNT 155 10x3/uL (130-400); RBC 3.14 10x6/uL (4.20-6.10); RDW 15.3 % (11.5-14.5); WBC 4.2 10x3/uL (4.8-10.8)
[2017-01-12 05:13] LABS: ALBUMIN 2.8 g/dL (3.4-5.0); ANION GAP 9.1 mmol/L (8-16); BILIRUBIN - TOTAL 0.5 mg/dL (0.2-1.3); CALCIUM 10.1 mg/dL (8.5-10.1); CARBON DIOXIDE 31.6 mmol/L (21.0-32.0); CREATININE - SERUM 1.1 mg/dL (0.6-1.3); PHOSPHOROUS 2.8 mg/dL (2.5-4.9); POTASSIUM - SERUM 3.7 mmol/L (3.5-5.1); PROTEIN - SERUM 6.1 g/dL (6.4-8.2)
--- NOTE | 2017-01-12 07:30 | NUR ---
RESTING QUIETLY AAOX4 RESP UNLABORED DENIES ANY NEEDS OR DISCOMFORT AT THIS TIME
--- NOTE | 2017-01-12 11:41 | NUR ---
FSBSA 123
--- NOTE | 2017-01-12 13:23 | NUR ---
PT AMBULATED TO BATHROOM WITH WALKER ANS SBA X1 THEN BACK TO BED TOLERATED WELL
--- NOTE | 2017-01-12 20:00 | NUR ---
PT UP IN ROOM. WANTING TO BE RELEASED FROM HIS IV SO HE CAN WALK. HE IS NOW WALKING THE HALLWAY. AT BEDSIDE.
--- NOTE | 2017-01-12 21:10 | NUR ---
PT DRESSED UP AND WALKED THE HALLWAY, [place] [employer] IN USE FOR PAIN CONTROL. IV IN LEFT HAND. GIRLFRIEND STAYS AT [facility]. CPOC.
--- NOTE | 2017-01-13 00:07 | NUR ---
1ST UNIT OF BLOOD COMPLETED AND SECOND UNIT OF PRBCS NOW UP AND INFUSING. VSS. PT RESTING WITH NO DISTRESS. CPOC.
[2017-01-13 05:00] VITALS: BP 180/94
[2017-01-13 06:26] LABS: BASOPHILS 0.5 % (0-2); EOSINOPHILS 0.5 % (0-7); HEMATOCRIT 29.6 % (42.0-54.0); HEMOGLOBIN 9.2 g/dL (13.5-17.5); IMMATURE GRANULOCYTES 0.5 % (0-5); MCH 25.4 pg (26.0-34.0); MCHC 31.1 g/dL (31.0-37.0); MCV 81.8 fL (80.0-100.0); MEAN PLATELET VOLUME 10.2 fL (7.4-10.4); MONOCYTES 10.1 % (2-11); NEUTROPHILS 70.4 % (40-80); PLATELET COUNT 164 10x3/uL (130-400); RBC 3.62 10x6/uL (4.20-6.10); RDW 15.2 % (11.5-14.5); WBC 4.4 10x3/uL (4.8-10.8)
[2017-01-13 06:46] LABS: ANION GAP 12.9 mmol/L (8-16); BILIRUBIN - TOTAL 0.6 mg/dL (0.2-1.3); CALCIUM 10.1 mg/dL (8.5-10.1); CARBON DIOXIDE 29.9 mmol/L (21.0-32.0); CREATININE - SERUM 1.1 mg/dL (0.6-1.3); POTASSIUM - SERUM 3.8 mmol/L (3.5-5.1); PROTEIN - SERUM 6.4 g/dL (6.4-8.2)
[2017-01-13 08:00] VITALS: BP 200/89
[2017-01-13 12:00] VITALS: BP 179/75
--- NOTE | 2017-01-13 13:45 | NUR ---
Nutrition follow-up: Diet: low sodium PO intake 100% of meals Labs reviewed +BM Wt: 205# RDN following.
--- NOTE | 2017-01-13 13:48 | NUR ---
TELEMETRY SR. RESP UL ON 02 3L NC. ASSISTED BACK TO BED FROM CHAIR. WILL CONT. PLAN OF CARE.
[2017-01-13 16:00] VITALS: BP 187/79
--- NOTE | 2017-01-13 19:03 | NUR ---
RECEIVED REPORT AND ASSUMED PT CARE FROM DAY SHIFT NURSE @ THIS TIME
[2017-01-13 20:08] VITALS: BP 188/79
[2017-01-14 01:09] VITALS: BP 183/82
[2017-01-14 04:00] VITALS: BP 190/98
[2017-01-14 06:04] LABS: BASOPHILS 0.6 % (0-2); HEMATOCRIT 29.6 % (42.0-54.0); HEMOGLOBIN 9.1 g/dL (13.5-17.5); IMMATURE GRANULOCYTES 0.4 % (0-5); LYMPHOCYTES 23.6 % (15-50); MCH 25.4 pg (26.0-34.0); MCHC 30.7 g/dL (31.0-37.0); MCV 82.7 fL (80.0-100.0); MEAN PLATELET VOLUME 9.6 fL (7.4-10.4); MONOCYTES 8.4 % (2-11); PLATELET COUNT 147 10x3/uL (130-400); RBC 3.58 10x6/uL (4.20-6.10); RDW 15.4 % (11.5-14.5); WBC 4.9 10x3/uL (4.8-10.8)
[2017-01-14 06:25] LABS: ANION GAP 9.6 mmol/L (8-16); BILIRUBIN - TOTAL 0.6 mg/dL (0.2-1.3); CALCIUM 10.3 mg/dL (8.5-10.1); CARBON DIOXIDE 32.1 mmol/L (21.0-32.0); CREATININE - SERUM 1.1 mg/dL (0.6-1.3); POTASSIUM - SERUM 3.7 mmol/L (3.5-5.1); PROTEIN - SERUM 6.4 g/dL (6.4-8.2)
[2017-01-14 08:00] VITALS: BP 192/93
[2017-01-14 12:00] VITALS: BP 182/81
[2017-01-14 16:00] VITALS: BP 189/90
[2017-01-14 19:00] VITALS: BP 186/93
--- NOTE | 2017-01-14 20:00 | NUR ---
PT RESTING IN BED. HAS BEEN ASSISTED UP TO BATHROOM TO VOID. PIV TO RIGHT WRIST SALINE LOCKED. SR WITH BBB PER TELEMETRY. O2 @ 3L/NC. YARBROUGH PATENT TO BEDSIDE DRAIN BAG. SEE SHIFT ASSESSMENT. CPOC.
[2017-01-15] VITALS: BP 185/89
[2017-01-15 04:00] VITALS: BP 203/97
[2017-01-15 05:12] LABS: BASOPHILS 0.4 % (0-2); EOSINOPHILS 1.2 % (0-7); HEMATOCRIT 28.3 % (42.0-54.0); HEMOGLOBIN 8.7 g/dL (13.5-17.5); IMMATURE GRANULOCYTES 0.4 % (0-5); LYMPHOCYTES 16.2 % (15-50); MCH 25.7 pg (26.0-34.0); MCHC 30.7 g/dL (31.0-37.0); MCV 83.5 fL (80.0-100.0); MEAN PLATELET VOLUME 10.2 fL (7.4-10.4); MONOCYTES 8.6 % (2-11); NEUTROPHILS 73.2 % (40-80); PLATELET COUNT 159 10x3/uL (130-400); RBC 3.39 10x6/uL (4.20-6.10); RDW 15.8 % (11.5-14.5)
[2017-01-15 05:34] LABS: ALBUMIN 2.8 g/dL (3.4-5.0); ALKALINE PHOSPHATASE 46 U/L (46-116); ALT (SGPT) 17 U/L (10-68); BILIRUBIN - TOTAL 0.48 mg/dL (0.2-1.3); CALC OSMOLALITY 296 mosm/kg (275-300); CALCIUM 9.6 mg/dL (8.5-10.1); CARBON DIOXIDE 33.5 mmol/L (21.0-32.0); CHLORIDE - SERUM 105 mmol/L (98-107); CREATININE - SERUM 0.9 mg/dL (0.6-1.3); GLUCOSE 98 mg/dL (74-106); POTASSIUM - SERUM 3.5 mmol/L (3.5-5.1); PROTEIN - SERUM 6.3 g/dL (6.4-8.2); SODIUM 144 mmol/L (136-145); UREA NITROGEN 40 mg/dL (7-18); eGFR NON AFRICAN AMERICAN 89 mL/min (90-120)
[2017-01-15 08:29] VITALS: BP 197/97
[2017-01-15 11:35] VITALS: BP 193/91
--- NOTE | 2017-01-15 12:26 | NUR ---
Rehab Note- Acute Rehab Prescreen order received. Visited with the patient, he is very interested in acute rehab. Will see if PT will re-eval the patient for his functional mobility. The patient states that he is weak,gets dizzy, gets SOB with ambulation, and unsteady. Will follow the patient at this time. Thank you for this referral! Mamta Wheat RN Clinical Liaison, [facility] [place], [place] Rehab
--- NOTE | 2017-01-15 14:50 | NUR ---
TELEMETRY SR. RESP UL ON 02 3L VEDA. LINNEA PATENT. CALL LIGHT IN REACH. WILL CONT. PLAN OF CARE.
--- NOTE | 2017-01-15 15:00 | NUR ---
Spoke to Marie Cruz APN for Dr Hillman, informed her of patient being accepted to rehab. Marie says Dr Sargent wants to watch the patient until Friday. Rehab will accept patient when physician feels he is medically stable for discharge to rehab Hyun Qiu RN Clinical Liaison, Rehab
[2017-01-15 15:29] VITALS: BP 190/88
--- NOTE | 2017-01-15 16:29 | NUR ---
Patient Name: BANDAR NORTH Encounter No: [id number] : 1950 Primary Insurance: MEDICARE A & B Anticipated DC Date: 01-17-2017 Planned Disposition: Inpatient Rehab External Planned Provider: [facility] DCP follow-up note: CM RECEIVED ORDER FOR INPATIENT REHAB PRESCREENING. CM MET WITH PT IN ROOM, DISCUSSED INPATIENT REHAB AVAILABIILITY AND LOCATIONS. PT WOULD LIKE TO BE CONSIDERED FOR REHAB AT [facility]. IMPORTANT MESSAGE FROM MEDICARE PROVIDED AND EXPLAINED. CM CALLED JL OF [facility] INPATIENT [facility] WHO REPORTS THAT PT IS GOOD CANDIDATE FOR REHAB, THEY WILL ACCEPT WHEN STABLE FOR DISCHARGE. [facility] PLANS TO ACCEPT PT WHEN STABLE FOR REHAB. CM TO NOTIFY INPATIENT REHAB WHEN PT IS READY FOR DISCHARGE. Ariel Kong, CASE MANAGEMENT
[2017-01-15 19:00] VITALS: BP 201/102
--- NOTE | 2017-01-15 21:04 | NUR ---
PT RESTING IN BED. ALERT/ORIENTED. REVIEWED CHANGES IN HIS MEDS AND NEW IV ABT. SR PER TELEMETRY. LINNEA PATENT TO BEDSIDE DRAINSIDE BED BAG. RIGHT WRIST PIV THAT IV ABT IS NOW INFUSING INTO. O2 @ 3L/NC WITH NONLABORED RESPIRATIONS. SEE SHIFT ASSESSMENT. CPOC AND MONITOR.
[2017-01-16] VITALS: BP 187/85
--- NOTE | 2017-01-16 03:17 | NUR ---
RESTING IN BED WITH NO DISTRESS. IV ABT UP AND INFUSING. SR PER TELEMETRY. YARBROUGH PATENT WITH DARK YELLOW URINE.
[2017-01-16 04:00] VITALS: BP 193/93
[2017-01-16 04:55] LABS: BASOPHILS 0.5 % (0-2); EOSINOPHILS 1.3 % (0-7); HEMATOCRIT 28.2 % (42.0-54.0); HEMOGLOBIN 8.7 g/dL (13.5-17.5); IMMATURE GRANULOCYTES 0.3 % (0-5); LYMPHOCYTES 21.5 % (15-50); MCH 25.7 pg (26.0-34.0); MCHC 30.9 g/dL (31.0-37.0); MCV 83.2 fL (80.0-100.0); MEAN PLATELET VOLUME 9.5 fL (7.4-10.4); MONOCYTES 10.7 % (2-11); NEUTROPHILS 65.7 % (40-80); PLATELET COUNT 142 10x3/uL (130-400); RBC 3.39 10x6/uL (4.20-6.10); RDW 15.8 % (11.5-14.5); WBC 3.8 10x3/uL (4.8-10.8)
[2017-01-16 05:24] LABS: ALBUMIN 2.7 g/dL (3.4-5.0); ALKALINE PHOSPHATASE 44 U/L (46-116); ALT (SGPT) 17 U/L (10-68); BILIRUBIN - TOTAL 0.62 mg/dL (0.2-1.3); CALC OSMOLALITY 291 mosm/kg (275-300); CALCIUM 9.8 mg/dL (8.5-10.1); CARBON DIOXIDE 34.3 mmol/L (21.0-32.0); CHLORIDE - SERUM 106 mmol/L (98-107); CREATININE - SERUM 0.9 mg/dL (0.6-1.3); GLUCOSE 99 mg/dL (74-106); POTASSIUM - SERUM 3.6 mmol/L (3.5-5.1); PROTEIN - SERUM 6.1 g/dL (6.4-8.2); SODIUM 143 mmol/L (136-145); UREA NITROGEN 32 mg/dL (7-18); eGFR NON AFRICAN AMERICAN 89 mL/min (90-120)
[2017-01-16 09:12] VITALS: BP 197/88
[2017-01-16 11:33] VITALS: BP 197/89
--- NOTE | 2017-01-16 11:56 | NUR ---
FSBS 126
[2017-01-16 16:13] VITALS: BP 168/75
--- NOTE | 2017-01-16 17:28 | NUR ---
FSBS 155 HUMALOG 2 UNITS GIVEN SQ LT ARM
[2017-01-16 19:00] VITALS: BP 177/68
--- NOTE | 2017-01-16 22:36 | NUR ---
PT'S YARBROUGH BAG WITH A SPLIT IN THE SEAM AND LEAKING ON THE FLOOR. YARBROUGH REMOVED AND REPLACED WITH 16 FR 10 CC BULB BARD YARBROUGH. PT MARIUSZ WELL. WILL MONITOR.
[2017-01-17] VITALS: BP 189/76
--- NOTE | 2017-01-17 00:08 | NUR ---
PT RESTING WELL WITHOUT C/O OR DISTRESS NOTED. NO CHANGES NOTED IN ASSESSMENT. VSS, AFEBRILE. WILL CONT TO MONITOR.
[2017-01-17 04:00] VITALS: BP 195/84
[2017-01-17 05:30] LABS: BASOPHILS 0.6 % (0-2); EOSINOPHILS 0.6 % (0-7); HEMATOCRIT 28.5 % (42.0-54.0); HEMOGLOBIN 8.9 g/dL (13.5-17.5); IMMATURE GRANULOCYTES 0.2 % (0-5); MCH 25.6 pg (26.0-34.0); MCHC 31.2 g/dL (31.0-37.0); MCV 82.1 fL (80.0-100.0); MEAN PLATELET VOLUME 9.8 fL (7.4-10.4); NEUTROPHILS 79.6 % (40-80); RBC 3.47 10x6/uL (4.20-6.10)
[2017-01-17 05:32] LABS: PLATELET COUNT 173 10x3/uL (130-400); WBC 5.2 10x3/uL (4.8-10.8)
[2017-01-17 05:49] LABS: APTT 39.3 SECONDS (22.8-39.4); INR 1.14 (0.85-1.17); PROTIME 14.5 SECONDS (11.6-15.0)
[2017-01-17 05:55] LABS: ALBUMIN 2.6 g/dL (3.4-5.0); ALKALINE PHOSPHATASE 46 U/L (46-116); ALT (SGPT) 16 U/L (10-68); BILIRUBIN - TOTAL 0.59 mg/dL (0.2-1.3); CALC OSMOLALITY 293 mosm/kg (275-300); CALCIUM 9.6 mg/dL (8.5-10.1); CARBON DIOXIDE 33.4 mmol/L (21.0-32.0); CHLORIDE - SERUM 105 mmol/L (98-107); CREATININE - SERUM 0.8 mg/dL (0.6-1.3); GLUCOSE 92 mg/dL (74-106); POTASSIUM - SERUM 3.7 mmol/L (3.5-5.1); SODIUM 143 mmol/L (136-145); UREA NITROGEN 38 mg/dL (7-18); eGFR NON AFRICAN AMERICAN > 90 mL/min (90-120)
--- NOTE | 2017-01-17 07:30 | NUR ---
RESTING QUIETLY EYES CLOSED RESP UNLABORED NAD NOTED
[2017-01-17 08:00] VITALS: BP 161/65
--- NOTE | 2017-01-17 12:11 | NUR ---
1145 PT IN ROOM HAVING LOW HEART RATES AND BLOCKS.REPORTED THIS TO DR. BECERRA. EKG PBTAINED. REPORT CALLED TO KEN SOUZA R.N. PRROCEDURE CANCELLED. TO ROOM 1213.
--- NOTE | 2017-01-17 12:21 | NUR ---
Nutrition Follow Up: Pt is eating 100% meal avg on an AHA diet. Wt loss since admit noted. +BM 01/12/17. Meds noted including Lasix. Labs reviewed - Glucose elevated. Rec continue current diet. If glucose continues elevated rec changing diet to ADA. RD following.
--- NOTE | 2017-01-17 13:33 | NUR ---
PT TAKEN TO GI LAB FOR BRONCHOSCOPY PER DR BECERRA, WHEN HOOKED UP TO MONITOR PT HAD A HEART RATE OF 44, PROCEDURE CANCELED PER DR BECERRA, PT TAKEN BACK TO ROOM WITH CARDIOLOGY CONSULT.
[2017-01-17 16:00] VITALS: BP 169/92
--- NOTE | 2017-01-17 16:55 | NUR ---
FSBS 132
[2017-01-17 19:00] VITALS: BP 154/64
--- NOTE | 2017-01-17 19:00 | NUR ---
RECEIVED REPORT AND ASSUMED PT CARE FROM DAY SHIFT NURSE @ THIS TIME.
--- NOTE | 2017-01-17 19:00 | NUR ---
RECEIVED REPORT AND ASSUMED PT CARE FROM DAY SHIFT NURSE @ THIS TIME.
[2017-01-18] VITALS: BP 155/67
[2017-01-18 04:00] VITALS: BP 174/80
[2017-01-18 05:57] LABS: BASOPHILS 0.4 % (0-2); EOSINOPHILS 0.7 % (0-7); HEMATOCRIT 29.3 % (42.0-54.0); LYMPHOCYTES 17.6 % (15-50); MCH 25.1 pg (26.0-34.0); MCHC 30.7 g/dL (31.0-37.0); MCV 81.6 fL (80.0-100.0); MEAN PLATELET VOLUME 9.8 fL (7.4-10.4); MONOCYTES 7.2 % (2-11); NEUTROPHILS 74.1 % (40-80); PLATELET COUNT 194 10x3/uL (130-400); RBC 3.59 10x6/uL (4.20-6.10); RDW 16.1 % (11.5-14.5); WBC 4.6 10x3/uL (4.8-10.8)
[2017-01-18 06:14] LABS: ALBUMIN 2.6 g/dL (3.4-5.0); ALKALINE PHOSPHATASE 45 U/L (46-116); ALT (SGPT) 15 U/L (10-68); BILIRUBIN - TOTAL 0.59 mg/dL (0.2-1.3); CALC OSMOLALITY 287 mosm/kg (275-300); CALCIUM 9.7 mg/dL (8.5-10.1); CARBON DIOXIDE 35.4 mmol/L (21.0-32.0); CHLORIDE - SERUM 105 mmol/L (98-107); CREATININE - SERUM 0.9 mg/dL (0.6-1.3); GLUCOSE 90 mg/dL (74-106); POTASSIUM - SERUM 3.3 mmol/L (3.5-5.1); PROTEIN - SERUM 5.9 g/dL (6.4-8.2); SODIUM 141 mmol/L (136-145); UREA NITROGEN 33 mg/dL (7-18); eGFR NON AFRICAN AMERICAN 89 mL/min (90-120)
[2017-01-18 08:38] VITALS: BP 188/83
--- NOTE | 2017-01-18 09:18 | NUR ---
RESP UL ON 02 3L NC. IV PATENT. YARBROUGH INTACT. WILL CONT. PLAN OF CARE.
[2017-01-18 12:54] VITALS: BP 145/70
[2017-01-18 16:37] VITALS: BP 140/80
[2017-01-18 19:00] VITALS: BP 178/82
[2017-01-19] VITALS: BP 162/70
[2017-01-19 03:56] VITALS: BP 182/84
[2017-01-19 06:17] LABS: BASOPHILS 0.3 % (0-2); EOSINOPHILS 0.9 % (0-7); HEMATOCRIT 29.4 % (42.0-54.0); HEMOGLOBIN 9.1 g/dL (13.5-17.5); IMMATURE GRANULOCYTES 0.3 % (0-5); LYMPHOCYTES 12.1 % (15-50); MCH 25.3 pg (26.0-34.0); MCV 81.9 fL (80.0-100.0); MEAN PLATELET VOLUME 9.9 fL (7.4-10.4); MONOCYTES 8.4 % (2-11); PLATELET COUNT 223 10x3/uL (130-400); RBC 3.59 10x6/uL (4.20-6.10); RDW 16.3 % (11.5-14.5)
[2017-01-19 06:22] LABS: WBC 5.9 10x3/uL (4.8-10.8)
[2017-01-19 06:27] LABS: CALC OSMOLALITY 291 mosm/kg (275-300); CALCIUM 9.8 mg/dL (8.5-10.1); CARBON DIOXIDE 33.3 mmol/L (21.0-32.0); CHLORIDE - SERUM 104 mmol/L (98-107); CREATININE - SERUM 0.7 mg/dL (0.6-1.3); GLUCOSE 88 mg/dL (74-106); POTASSIUM - SERUM 3.8 mmol/L (3.5-5.1); SODIUM 143 mmol/L (136-145); UREA NITROGEN 36 mg/dL (7-18); URIC ACID 7.1 mg/dL (2.6-7.2); eGFR NON AFRICAN AMERICAN > 90 mL/min (90-120)
[2017-01-19 07:21] LABS: ERYTHROCYTE SEDIMENTATION RATE 25 mm/hr (0-20)
[2017-01-19 08:58] VITALS: BP 165/80
--- NOTE | 2017-01-19 09:55 | NUR ---
RESP UL ON 02 3L NC. IV PATENT. CALL LIGHT IN REACH. TELEMETRY . LINNEA INTACT. WILL CONT. PLAN OF CARE.
[2017-01-19 11:53] VITALS: BP 170/80
[2017-01-19 16:50] VITALS: BP 158/72
[2017-01-19 20:00] VITALS: BP 169/89
[2017-01-20 00:19] VITALS: BP 157/73
[2017-01-20 04:24] VITALS: BP 168/82
--- NOTE | 2017-01-20 07:30 | NUR ---
RECEIVED PT IN BED EYES CLOSED RESP UNLABORED NAD NOTED
[2017-01-20 08:00] VITALS: BP 166/65
[2017-01-20 12:00] VITALS: BP 144/67
--- NOTE | 2017-01-20 12:25 | NUR ---
fsbs 139
[2017-01-20 16:00] VITALS: BP 156/64
--- NOTE | 2017-01-20 16:37 | NUR ---
FSBS 165 HUMALOG 4 UNITS GIVEN SQ LT ARM
--- NOTE | 2017-01-20 19:45 | NUR ---
PT RESTING IN BED. NO DISTRESS. O2 @ 2L/CN WITH NONLABORED RESPIRATIONS. TELEMETRY SR. IV TO CLAUDIA WITH NS @ KVO. SEE SHIFT ASSESSMENT, MONITOR AND CPOC.
[2017-01-20 21:15] VITALS: BP 160/70
--- NOTE | 2017-01-20 21:17 | NUR ---
BEDTIME MEDS GIVEN. IV LASIX ADMINISTERED. IV ABT UP AND INFUSING. PT EDUCATION ON EACH MED RECEIVED.
[2017-01-21 01:29] VITALS: BP 165/71
[2017-01-21 04:36] VITALS: BP 174/81
[2017-01-21 06:05] LABS: BASOPHILS 0.5 % (0-2); HEMOGLOBIN 8.8 g/dL (13.5-17.5); IMMATURE GRANULOCYTES 0.3 % (0-5); LYMPHOCYTES 13.1 % (15-50); MCH 25.6 pg (26.0-34.0); MCHC 31.4 g/dL (31.0-37.0); MCV 81.4 fL (80.0-100.0); MEAN PLATELET VOLUME 9.5 fL (7.4-10.4); MONOCYTES 9.7 % (2-11); NEUTROPHILS 75.4 % (40-80); PLATELET COUNT 235 10x3/uL (130-400); RBC 3.44 10x6/uL (4.20-6.10); RDW 16.7 % (11.5-14.5); WBC 6.2 10x3/uL (4.8-10.8)
[2017-01-21 06:10] LABS: CALC OSMOLALITY 287 mosm/kg (275-300); CALCIUM 9.8 mg/dL (8.5-10.1); CARBON DIOXIDE 32.6 mmol/L (21.0-32.0); CHLORIDE - SERUM 104 mmol/L (98-107); CREATININE - SERUM 0.8 mg/dL (0.6-1.3); GLUCOSE 86 mg/dL (74-106); POTASSIUM - SERUM 3.9 mmol/L (3.5-5.1); SODIUM 140 mmol/L (136-145); UREA NITROGEN 40 mg/dL (7-18); eGFR NON AFRICAN AMERICAN > 90 mL/min (90-120)
[2017-01-21 08:00] VITALS: BP 131/77
--- NOTE | 2017-01-21 11:05 | NUR ---
FSBS 122
[2017-01-21 12:00] VITALS: BP 138/60
[2017-01-21] MEDS ORDERED: Imdur PO (13:56)
[2017-01-21] MEDS ORDERED: HYDRALAZINE HCL50 MG PO (13:56)
[2017-01-21] MEDS ORDERED: COREG12.5 MG PO (13:57)
[2017-01-21] MEDS ORDERED: ZESTRIL40 MG PO (13:57)
[2017-01-21] MEDS ORDERED: IPRAT-ALBUT 0.5-3 ML UPD (14:09)
[2017-01-21] MEDS ORDERED: TESSALON PERLE100 MG PO (14:10)
[2017-01-21] MEDS ORDERED: MUCINEX600 MG PO (14:11)
[2017-01-21] MEDS ORDERED: PROTONIX40 MG PO (14:11)
[2017-01-21] MEDS ORDERED: FLOMAX0.4 MG PO (14:12)
[2017-01-21] MEDS ORDERED: PROSCAR5 MG PO (14:12)
[2017-01-21] MEDS ORDERED: MAXIPIME 1 GM/D51 G1 IV (14:14)
[2017-01-21] MEDS ORDERED: VIBRAMYCIN 100100 M1 IV (14:15)
[2017-01-21 16:00] VITALS: BP 109/64
--- NOTE | 2017-01-21 16:36 | NUR ---
FSBS 148
--- NOTE | 2017-01-21 16:44 | NUR ---
Patient Name: BANDAR NORTH Encounter No: [id number] : 1950 Primary Insurance: MEDICARE A & B Anticipated DC Date: 01-21-2017 Planned Disposition: Inpatient Rehab External Planned Provider: [facility] INPAT[facility] DCP follow-up note: CM SPOKE TO [facility] [place] WHO REPORTS PLAN OF DISCHARGE TODAY. CM SPOKE TO JL OF INPATIENT REHAB, THEY PLAN TO ACCEPT PT TODAY FOR REHAB AT DISCHARGE. PT NOTIFIED, IN AGREEMENT WITH DISCHARGE TO INPATIENT REHAB. IMPORTANT MESSAGE FROM MEDICARE PROVIDED AND DISCUSSED. CM OFFERED TO CALL FAMILY OR FRIENDS FOR PT WHO DENIED NEED, REPORTS ABILITY TO CALL HIMSELF. [facility] INPAT[facility] TO CONTACT MED 2 NURSE WITH ROOM NUMBER WHEN READY TO ACCEPT PT AND NURSE REPORT. Ariel Kong, CASE MANAGEMENT
--- NOTE | 2017-01-21 18:03 | NUR ---
RECEIVED PT IN BED RESTING QUIETLY RESP UNLABORED NAD NOTED
[2017-01-22 10:17] LABS: ANA REFLEX - DIRECT Negative (Negative)
[2017-01-23 09:17] LABS: ANTI-GLOMERULAR BASMENT MEMBRN 6 units (0-20)
[2017-01-23 16:12] LABS: ANCA - ANTIMYELOPEROXIDASE <9.0 U/mL (0.0-9.0); ANCA - ANTIPROTEINASE 3 <3.5 U/mL (0.0-3.5); ANCA - ATYPICAL <1:20 titer (Neg:<1:20); ANCA - CYTOPLASMIC <1:20 titer (Neg:<1:20); ANCA - PERINUCLEAR <1:20 titer (Neg:<1:20)
[2017-01-23 21:09] LABS: CYCLIC CITRULL PEPTIDE IGG/IGA 6 units (0-19)
== END 2017-01-21 20:28 | DRG 291 ==
LOC: D.ER 17:38 → D.WS 23:51 → D.M2 23:51
PROVIDERS: Emergency Medicine; Family Medicine; Internal Medicine Cardiovascular Disease; Internal Medicine Pulmonary Disease; Physician Assistant; ADMIT Family Medicine
PROC: 0T9B70Z Drainage of Bladder with Drainage Device, Via Natural or Artificial Opening (ICD-10-PCS; principal; 2017-01-10 14:08)
DX: I13.0 Hypertensive heart and chronic kidney disease with heart failure and stage 1 through stage 4 chronic kidney disease, or unspecified chronic kidney disease (principal); I50.33 Acute on chronic diastolic (congestive) heart failure; N13.8 Other obstructive and reflux uropathy; I31.3 Pericardial effusion (noninflammatory); N18.9 Chronic kidney disease, unspecified; E11.22 Type 2 diabetes mellitus with diabetic chronic kidney disease; E11.65 Type 2 diabetes mellitus with hyperglycemia; E87.6 Hypokalemia; D63.8 Anemia in other chronic diseases classified elsewhere; N40.1 Benign prostatic hyperplasia with lower urinary tract symptoms; I27.2 Other secondary pulmonary hypertension; G47.33 Obstructive sleep apnea (adult) (pediatric); F41.8 Other specified anxiety disorders

== ENCOUNTER 2017-01-21 20:30 | Inpatient (IN) | payer MEDICARE ==
[~2017-01-21] VITALS: Ht 177.8 cm; Wt 96.6 kg
[~2017-01-21 20:30] MED LIST: BAYER CHEWABLE81 MG PO; COREG12.5 MG PO; FLOMAX0.4 MG PO; HYDRALAZINE HCL50 MG PO; IPRAT-ALBUT 0.5-3 ML UPD; Imdur PO; K-TAB10 MEQ PO; LASIX80 MG PO; LISINOPRIL5 MG PO; LONITEN10 MG PO; MAXIPIME 1 GM/D51 G1 IV; METOLAZONE5 MG PO; MUCINEX600 MG PO; NORVASC10 MG PO; PROSCAR5 MG PO; PROTONIX40 MG PO; REQUIP0.5 MG PO; ROCALTROL0.25 MCG PO; TESSALON PERLE100 MG PO; TOPROL XL200 MG PO; TRICOR145 MG PO; VIBRAMYCIN 100100 M1 IV; VITAMIN D250000 UNIT PO; ZESTRIL40 MG PO; ZOLOFT100 MG PO
--- NOTE | 2017-01-21 20:30 | NUR ---
ARRIVED ON UNIT VIA W/C ACCOMPANIED BY MED 2 STAFF. DENIES CURRENT NEEDS.
--- NOTE | 2017-01-21 22:55 | NUR ---
HS MEDS GIVEN TO PATIENT. STARTED IV MAXIPIME 1GM IN 50ML TO RUN PER PUMP VIA RIGHT UPPER ARM S/L, TO BE IMMEDIATLEY FOLLOWED BY FINAL DOSE OF DOXYCYCLINE 100MG IN 250ML WHICH WILL RUN OVER 2 HOURS. TOLD PATIENT I WILL RETURN TO PERFORM HIS ADMISSION ASSESSMENT WHEN I AM FINISHED WITH THE FIRST PATIENT I AM ADMITTING. HE SAYS HE UNDERSTANDS AND IS COMFORTABLE SITTING UP IN THE RECLINER AT HIS BEDSIDE.
--- NOTE | 2017-01-22 | NUR ---
RESTING IN RECLINER, EYES CLOSED. WILL START ADMISSION ASSESSMENT SHORTLY.
[2017-01-22 00:10] VITALS: BP 183/81
--- NOTE | 2017-01-22 01:20 | NUR ---
ADMISSION ASSESSMENT AND HISTORY COMPLETE. ADMISSION DOCUMENTS SIGNED. ASSISTED PATIENT INTO BED WITH HOB UP 20 DEGREES. IV DOXYCYCLINE 100MG INFUSING CURRENTLY @ 125ML PER HOUR PER PUMP VIA RIGHT UPPER ARM S/L.
--- NOTE | 2017-01-22 02:00 | NUR ---
RESTING IN BED, EYES CLOSED.
--- NOTE | 2017-01-22 02:10 | NUR ---
RECEIVED CALL FROM MONITORING STATION SAYING PATIENT'S HR HAD DROPPED INTO HIGH 30'S A FEW TIMES. WILL CONTINUE TO MONITOR, AND CALL DR. DALTON IF RATE STAYS LOW.
--- NOTE | 2017-01-22 04:35 | NUR ---
RESTING QUIETLY IN BED, EYES CLOSED.
[2017-01-22 06:33] LABS: BASOPHILS 0.8 % (0-2); EOSINOPHILS 1.3 % (0-7); HEMATOCRIT 28.4 % (42.0-54.0); HEMOGLOBIN 8.8 g/dL (13.5-17.5); IMMATURE GRANULOCYTES 0.3 % (0-5); MCH 25.4 pg (26.0-34.0); MCV 82.1 fL (80.0-100.0); MEAN PLATELET VOLUME 9.8 fL (7.4-10.4); MONOCYTES 10.4 % (2-11); NEUTROPHILS 66.2 % (40-80); PLATELET COUNT 250 10x3/uL (130-400); RBC 3.46 10x6/uL (4.20-6.10); RDW 16.7 % (11.5-14.5)
[2017-01-22 06:34] LABS: WBC 3.9 10x3/uL (4.8-10.8)
--- NOTE | 2017-01-22 06:35 | NUR ---
GAVE PATIENT SCHEDULED MEDS. DENIES NEEDS. S/L RIGHT UPPER ARM FLUSHED AND PATENT.
--- NOTE | 2017-01-22 07:45 | NUR ---
MR NORTH IS RECEIVED LYING IN BED. HE OFFERS NO COMPLAINTS. HIS BREAKFAST IS SERVED. HE OFFERS NO COMPLAINTS THIS AM. GEN- AWAKE AND ALERT. LUNGS- CLEAR. HEART- RRR. ABD- SOFT , NONTENDER. EXT WITH EDEMA 1+. YARBROUGH INTACT. IV R UPPER ARM INTACT AND PATENT. BED IS LOW, SIDE RAILS UP X 2 AND CALL LIGHT IN REACH.
[2017-01-22 07:48] LABS: CALC OSMOLALITY 292 mosm/kg (275-300); CALCIUM 10.2 mg/dL (8.5-10.1); CARBON DIOXIDE 32.5 mmol/L (21.0-32.0); CHLORIDE - SERUM 105 mmol/L (98-107); CREATININE - SERUM 0.6 mg/dL (0.6-1.3); GLUCOSE 80 mg/dL (74-106); POTASSIUM - SERUM 3.7 mmol/L (3.5-5.1); SODIUM 143 mmol/L (136-145); UREA NITROGEN 37 mg/dL (7-18); eGFR NON AFRICAN AMERICAN > 90 mL/min (90-120)
[2017-01-22 09:05] VITALS: BP 195/85
--- NOTE | 2017-01-22 09:30 | NUR ---
MEDS GIVEN. PT IS GOING TO PHYSICAL THERAPY. HE OFFERS NO COMPLAINTS.
[2017-01-22 11:30] VITALS: Ht 177.8 cm; Wt 96.6 kg
--- NOTE | 2017-01-22 14:02 | NUR ---
UP IN WHEELCHAIR IN THERAPY GYM PARTICIPATING IN THERAPY AT THIS TIME. DENIES ANY NEEDS. NO ACUTE DISTRESS NOTED. WILL CONTINUE PLAN OF CARE.
--- NOTE | 2017-01-22 17:20 | RHP ---
PATIENT: BANDAR NORTH MEDICAL RECORD: [id number] ACCOUNT: [id number] LOCATION:[facility]1112 : [birth year] ADMISSION DATE: 01/21/17 REHABILITATION HISTORY AND PHYSICAL EXAMINATION POST ADMISSION PHYSICIAN EXAMINATION Post-admission Physical Examination and History and Physical DATE OF ADMISSION: 01/21/2017 ADMITTING DIAGNOSIS: Congestive heart failure myopathy. HISTORY OF PRESENT ILLNESS: The patient is a 66-year-old gentleman, who was admitted to the rehab with a working diagnosis of CHF myopathy. He was admitted to the acute hospital with progressive worsening shortness of breath and swelling over the past month with complaints including scrotal pain and swelling. He has past medical history of diabetes, hypertension, chronic kidney disease, former tobacco use, obstructive sleep apnea, anemia, depression, anxiety and hematuria. He had a transesophageal echo during his acute hospital stay that showed an EF of 65%, concentric left ventricular hypertrophy and moderate right ventricular enlargement. He had mild to moderate pericardial effusion without tamponade. On January 12, chest x-ray shows CHF and effusions. He has had a bronchoscopy secondary to some hemoptysis and went into second-degree heart block. He has been monitored and hemoptysis has resolved. He is to be on telemetry for cardiac monitoring. He continues receiving supplemental O2 and IV antibiotic therapy. He has been seen and followed by the pulmonary and cardiology during his stay. He is receiving bronchodilators anticoagulant therapy. He was also seen and followed by urology during his stay because of BPH and gross hematuria and urinary retention. He continues to have a Georges catheter. His renal function needs to be closely monitored and he needs to be watched closely for his diuresis. He lives at the [facility]. He is moderately independent with mobility and used a rolling walker. He is independent with ADLs. He is currently set up for moderate assist with ADLs and moderate assist for mobility and has proximal muscle weakness noted and difficulty rising from a chair. He plans to return back to the [facility], hopefully back to his prior level of functioning or better. COMORBIDITIES: In this patient include AV block, chronic diastolic CHF, bilateral pleural effusions, obstructive sleep apnea, hypertension, chronic kidney disease, anemia, hematuria, BPH, debility, edema, elevated BNP, dyspnea, hypokalemia, chronic murmur, diabetes, chronic anxiety and depression. PAST MEDICAL HISTORY: Significant for melanoma, depression, anxiety, shingles, urinary incontinence and scrotal problems. PAST SURGICAL HISTORY: Includes cataract and appendectomy. ALLERGIES: No known drug allergies. CURRENT MEDICATIONS: He is on vitamin D 50,000 units weekly, he is on DuoNeb updrafts, Zoloft 100 mg daily, potassium 10 mEq daily, Protonix 40 mg daily, Zaroxolyn 10 mg daily, lisinopril 40 mg daily, Imdur 60 mg daily, Lasix 40 mg daily, Proscar 5 mg daily, TriCor 145 mg daily, carvedilol 25 mg b.i.d. with meals, calcitriol 0.25 mcg daily, aspirin chewable 81 mg daily, polyethylene glycol 17 grams in 8 ounce of water daily, Flomax 0.4 mg q.h.s., Requip 1 mg HISTORY AND PHYSICAL [id number] BANDAR NORTH q.h.s., hydralazine 50 mg q.i.d., Mucinex 600 mg b.i.d. and Tessalon Perles 100 mg t.i.d. HABITS: No alcohol or tobacco use. FAMILY HISTORY: Noncontributory. SOCIAL HISTORY: The patient hopes to return back to the [facility], get back to his prior level of function. REVIEW OF SYSTEMS: GENERAL: Does complain of little weakness. HEENT: Denies cold, cough, or congestion. CARDIOVASCULAR: Denies chest pain. PHYSICAL EXAMINATION: VITAL SIGNS: Stable, afebrile. GENERAL: Elderly gentleman, in no acute distress, alert upon exam. HEENT: Normocephalic and atraumatic. Mucosa moist. NECK: Supple. No lymphadenopathy. LUNGS: Clear at this time. HEART: Regular rate and rhythm. ABDOMEN: Benign. EXTREMITIES: No clubbing, cyanosis or edema. NEUROLOGIC: Slow to mentate, but intact. LABORATORY DATA: His white count is 3.9, H&H of 8.8 and 28.4, and platelet count was noted to be 250. His sodium is 143, potassium 3.7, BUN and creatinine of 37 and 0.6 and blood sugar is noted to be 80. His calcium was somewhat elevated at 10.2. 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 The patient has potential to make improvement. We instituted the following multidisciplinary therapies including to, but not limited to physical, occupational, respiratory, speech, nutritional services, prosthetics and orthotics. Given his condition and risk for more complications, rehabilitation services cannot be provided at a lower level of care such as fpc facility. PLAN: 1. Admit to [facility] rehab for intensive inpatient therapy to include the following disciplines: A. Physical therapy to improve gait, all transfer skills and bed mobility to a modified independent level. B. Occupational therapy to improve activities of daily living to a modified independent level. C. Case management to assist with discharge planning and placement options. D. Nutrition to assist with nutritional needs. E. Rehabilitation nursing to assist in monitoring the patient's underlying medical conditions and to assist with any type of bowel or bladder management. 2. The patient's current medications and medical care will be continued. 3. The patient will be placed on standard fall precautions. 4. We will monitor his H&H closely. 5. Discuss this patient during care team staff meeting this week. HISTORY AND PHYSICAL [id number] BANDAR NORTH TRANSINT:[id number] Voice Confirmation ID: [id number] DOCUMENT ID: [id number] PETER notes whether there has been none or any medical/functional change since admission: - PETER attests patient continues to be appropriate for IRF: - TAMIKA DALTON MD at 1720 CC: [id number] DICTATION DATE: 01/22/17 1156 FOOD AND NUTRITION TEACHER: 01/22/17 1242 ADM IN [facility] [address] [id number]
--- NOTE | 2017-01-22 18:04 | NUR ---
UP IN WHEELCHAIR EATING SUPPER AT THIS TIME. DENEIS ANY NEEDS. NO ACUTE DISTRESS NOTED. WILL CONTINUE PLAN OF CARE.
[2017-01-22 19:00] VITALS: BP 157/91
--- NOTE | 2017-01-22 19:15 | NUR ---
PT IN BED WITH HOB UP FOR COMFORT. RESTING QUIETLY. ALERT & ORIENTED. RIGHT UPPER ARM IV. NO O2. YARBROUGH CATH. TELEMETRY. BED IN LOWEST POSITION AND CALL LIGHT WITHIN REACH.
--- NOTE | 2017-01-22 21:09 | NUR ---
RIGHT UPPERM IV WOULD NOT FLUSH. D/C'D IV WITH CATH TIP INTACT. PT TOLERATED PROCEDURE WELL.
--- NOTE | 2017-01-23 00:27 | NUR ---
PT LYING IN BED WITH HOB UP FOR COMOFRT. EYES CLOSED. CHEST RISING AND FALLING. BED IN LOWEST POSITION AND CALL LIGHT WITHIN REACH.
--- NOTE | 2017-01-23 02:25 | NUR ---
RESTING QUIETLY IN BED, EYES CLOSED. APPEARS COMFORTABLE.
--- NOTE | 2017-01-23 06:21 | NUR ---
PT LYING IN BED. EYES CLOSED. RESP. EVEN. BED IN LOWEST POSITION AND CALL LIGHT BERTO MENCHACA.
--- NOTE | 2017-01-23 07:30 | NUR ---
SITTING UP IN BED RESTING COMFORTABLY. NO S/SX OF DISTRESS. CALL LIGHT IN REACH. WILL CONTINUE TO MONITOR
--- NOTE | 2017-01-23 08:07 | NUR ---
EATING BREAKFAST IN ROOM. CALL LIGHT IN REACH. DENIES NEEDS.
[2017-01-23 08:48] VITALS: BP 166/78
--- NOTE | 2017-01-23 10:57 | NUR ---
IN THERAPY GYM WITH PHYSICAL THERAPY
--- NOTE | 2017-01-23 14:02 | NUR ---
WALKING IN HALLS WITH PHYSICAL THERAPY. NO S/SX OF DISTRESS
--- NOTE | 2017-01-23 16:42 | NUR ---
SITTING UP IN WHEELCHAIR. WATCHING TV. OFFERS NO COMPLAINTS. CALL LIGHT IN REACH
--- NOTE | 2017-01-23 19:00 | NUR ---
RESTING IN BED, EYES CLOSED. APPEARS COMFORTABLE.
--- NOTE | 2017-01-23 20:45 | NUR ---
RESTING IN BED ON RIGHT SIDE. NO DISCOMFORT EVIDENT.
[2017-01-23 22:10] VITALS: BP 186/80
--- NOTE | 2017-01-23 22:10 | NUR ---
ASSESSMENT AND HS MEDS COMPLETE. PULSEOX ONLY 93 TO 94% ON RA. WAS GOIND TO EMPLACE PATIENT'S CPAP BUT FOUND HIS WATER RESERVOIR WITH THE ENTIRE BOTTOM OF THE TANK COVERED IN PRECIPITATED MINERAL DEPOSITS AND POSSIBLE FUNGI. SYSTEM WILL NOT BE USABLE UNTIL RESERVOIR IS REPLACED AND SYSTEM IS SANITIZED PER SHIFT MGR PROCEDURE. PATIENT HAS APPARENTLY BEEN USING TAP WATER INSTEAD OF DISTILLED, AND FOR A LONG TIME, JUDGING BY THE DEPOSITS. SAID HE DID NOT KNOW DISTILLED WATER WAS MANDATED.
--- NOTE | 2017-01-24 00:15 | NUR ---
IN BED, EYES CLOSED. RESTING ON LEFT SIDE, HOB UP 20 DEGREES. APPEARS COMFORTABLE.
--- NOTE | 2017-01-24 02:15 | NUR ---
CONTINUES IN BED ON LEFT SIDE. NO DISTRESS EVIDENT.
--- NOTE | 2017-01-24 04:05 | NUR ---
IN BED, EYES CLOSED. RESPIRING QUIETLY.
--- NOTE | 2017-01-24 05:45 | NUR ---
AWOKE PATIENT AND GAVE HIM HIS SCHEDULED PROTONIX. SAYS HE WILL DO THERAPY TODAY IN CURRENT CLOTHING.
[2017-01-24 06:05] LABS: BASOPHILS 1.4 % (0-2); EOSINOPHILS 0.9 % (0-7); HEMATOCRIT 29.6 % (42.0-54.0); HEMOGLOBIN 9.3 g/dL (13.5-17.5); LYMPHOCYTES 24.7 % (15-50); MCH 25.1 pg (26.0-34.0); MCHC 31.4 g/dL (31.0-37.0); MEAN PLATELET VOLUME 9.6 fL (7.4-10.4); MONOCYTES 11.1 % (2-11); NEUTROPHILS 61.9 % (40-80); RDW 16.3 % (11.5-14.5); WBC 4.3 10x3/uL (4.8-10.8)
[2017-01-24 06:11] LABS: PLATELET COUNT 321 10x3/uL (130-400)
[2017-01-24 06:19] LABS: CALC OSMOLALITY 291 mosm/kg (275-300); CALCIUM 10.7 mg/dL (8.5-10.1); CARBON DIOXIDE 33.5 mmol/L (21.0-32.0); CHLORIDE - SERUM 104 mmol/L (98-107); GLUCOSE 80 mg/dL (74-106); POTASSIUM - SERUM 3.2 mmol/L (3.5-5.1); SODIUM 143 mmol/L (136-145); UREA NITROGEN 35 mg/dL (7-18)
[2017-01-24 06:25] LABS: CREATININE - SERUM 0.8 mg/dL (0.6-1.3); eGFR NON AFRICAN AMERICAN > 90 mL/min (90-120)
--- NOTE | 2017-01-24 06:30 | NUR ---
CHANGED HIS MIND AND WAS ASSISTED TO CHANGE TO FRESH BRIEF AND SCRUBS FOR THERAPY.
[2017-01-24 07:39] VITALS: BP 198/85
--- NOTE | 2017-01-24 08:44 | NUR ---
PATIENT ALERT/ORIENT X4. SITTING UP ON THE SIDE OF THE BED TO EAT BREAKFAST. CALL LIGHT WITHIN REACH. VOICES NO NEEDS
--- NOTE | 2017-01-24 10:00 | NUR ---
PATIENT IN REHAB ROOM. WORKING WITH PHYSICAL THERAPIST. DENIES ANY PAIN/DISC AT THIS TIME.
--- NOTE | 2017-01-24 11:41 | NUR ---
DR. Latisha DALTON INTO SEE PATIENT. NEW ORDERS RECEIVED.
--- NOTE | 2017-01-24 17:31 | NUR ---
COREG HELD DUE TO B/P 109/58
--- NOTE | 2017-01-24 19:00 | NUR ---
ASSISTED PATIENT TO TRANSFER FROM W/C TO RECLINER. BOTH CHAIRS ARE LOCKED. REPORTED PATIENT'S MOVE TO RECLINER TO HIS PRIMARY NURSE.
--- NOTE | 2017-01-24 20:00 | NUR ---
PT UP IN RECLINER. ALERT & ORIENTED. LINNEA CLIFTON. O2 @ 2L VIA N/C. NO IV. TELEMETRY. W/C. STAND BY ASSIST. CALL LIGHT WITHIN REACH.
[2017-01-24 20:49] VITALS: BP 151/64
--- NOTE | 2017-01-25 | NUR ---
PT IN BED WITH HOB UP FOR COMFORT. EYES CLOSED. CHEST RISING AND FALLING. BED IN LOWEST POSITION AND CALL LIGHT WITHIN REACH.
--- NOTE | 2017-01-25 04:00 | NUR ---
PT LYING IN BED. EYES CLOSED. CHEST RISING AND FALLING. BED IN LOWEST POSITION AND CALL LIGHT WITHIN REACH.
--- NOTE | 2017-01-25 05:35 | NUR ---
SHOWER AND ORAL CARE DONE. COMPLETE BED CHANGE.
--- NOTE | 2017-01-25 07:09 | NUR ---
RESTING QUIETLY IN BED. NO S/S DISTRESS. CALL LIGHT IN REACH
--- NOTE | 2017-01-25 07:35 | NUR ---
LYING IN BED RESTING COMFORTABLY. NO S/SX OF DISTRESS. OFFERS NO COMPLAINTS. CALL LIGHT IN REACH. WILL CONTINUE TO MONITOR
[2017-01-25 08:00] VITALS: BP 160/63
--- NOTE | 2017-01-25 10:09 | NUR ---
SITTING UP IN W/C WATCHING TV OFFERS NO COMPLAINTS AND DENIES PAIN. CALL LIGHT WITHIN REACH.
--- NOTE | 2017-01-25 14:59 | NUR ---
LYING IN BED RESTING COMFORTABLY. EASILY AROUSED WITH VERBAL STIMULI. CALL LIGHT WITHIN REACH. WILL CONTINUE TO MONITOR
--- NOTE | 2017-01-25 18:28 | NUR ---
SITTING UP IN WHEELCHAIR WATCHING TV. OFFERS NO COMPLAINTS. CALL LIGHT IN REACH. WILL CONTINUE TO MONITOR
--- NOTE | 2017-01-25 19:30 | NUR ---
PT IS RESTING IN WC IN HIS ROOM WATCHING TV. ALERT AND ORIENTED X 3. DENIES PAIN OR DISCOMFORT. NO NEEDS VOICED. O2IS ON @ 2LPM PER NC. YARBROUGH CATH IS PATENT AND DRAINING TO A GRAVITY BAG. TELEMETRY UNIT IS ON AND INTACT. SR'S ARE UP X 2 WHILE IN BED. CALL LIGHT AND BEDSIDE TABLE ARE WITHIN EASY REACH.
[2017-01-25 20:00] VITALS: BP 153/81
--- NOTE | 2017-01-25 20:00 | NUR ---
PT. SITTING UP IN W/C WATCHING TV. NO VOICED NEEDS AT THIS TIME. YARBROUGH TO BSD WITHOUT PROBLEMS. CALL LIGHT WITHIN REACH.
--- NOTE | 2017-01-25 22:12 | NUR ---
PT IS WATCHING TV IN HIS ROOM. NO ACUTE DISTRESS NOTED.
--- NOTE | 2017-01-26 00:26 | NUR ---
RESTING IN BED WITH EYES CLOSED.
--- NOTE | 2017-01-26 03:32 | NUR ---
RESTING IN BED WITH EYES CLOSED.
--- NOTE | 2017-01-26 07:30 | NUR ---
SITTING UP ON SIDE OF BED READING NEWSPAPER. NO S/SX OF DISTRESS. ALERT AND ORIENTED X4. OFFERS NO COMPLAINTS. CALL LIGHT WITHIN REACH. WILL CONTINUE TO MONITOR
[2017-01-26 08:00] VITALS: BP 191/86
--- NOTE | 2017-01-26 11:28 | NUR ---
SITTING UP IN CHAIR. OFFERS NO COMPLAINTS. CALL LIGHT WITHIN REACH. WILL CONTINUE TO MONITOR
--- NOTE | 2017-01-26 14:24 | NUR ---
SITTING UP IN WHEELCHAIR AT SINK SHAVING. OFFERS NO COMPLAINTS. DENIES ANY PAIN. WILL CONTINUE TO MONITOR
--- NOTE | 2017-01-26 17:32 | NUR ---
SITTING UP ON SIDE OF BED EATING DINNER. OFFERS NO COMPLAINTS. BP 127/78 P 58. DENIES PAIN. CALL LIGHT WITHIN REACH. WILL CONTINUE TO MONITOR
--- NOTE | 2017-01-26 18:11 | NUR ---
PT RESTING ,DENIES NEEDS. WCTM.
[2017-01-26 19:22] VITALS: BP 157/81
--- NOTE | 2017-01-26 19:38 | NUR ---
PT IS SITTING IN HIS WC IN HIS ROOM WATCHING TV. ALERT AND ORIENTED X 4. DENIES ACUTE DISCOMFORT AT THIS TIME. PT IS SOMEWHAT NOME. YARBROUGH CATH IS PATENT AND DRAINING TO A GRAVITY BAG. O2 IS ON @ 2LPM PER NC. NO SOB NOTED. TELEMETRY UNIT IS ON AND INTACT. SR'S ARE UP X 2 WHILE IN BED. CALL LIGHT AND BEDSIDE TABLE ARE WITHIN EASY REACH.
--- NOTE | 2017-01-26 19:40 | NUR ---
PT. IN BED WITH HOB UP FOR COMFORT AND IS WATCHING TV AND RECEIVING BREATHING TX. NO VOICED NEEDS. YARBROUGH TO BSD WITHOUT PROBLEMS. CALL LIGHT WITHIN REACH.
--- NOTE | 2017-01-26 21:33 | NUR ---
RESTING IN WC WATCHING TV. NO NEEDS VOICED.
--- NOTE | 2017-01-27 00:01 | NUR ---
PT RESTING QUIETLY IN BED WITH EYES CLOSED
--- NOTE | 2017-01-27 03:28 | NUR ---
RESTING IN BED WITH EYES CLOSED.
[2017-01-27 06:51] LABS: BASOPHILS 0.9 % (0-2); EOSINOPHILS 1.6 % (0-7); HEMATOCRIT 31.2 % (42.0-54.0); HEMOGLOBIN 9.7 g/dL (13.5-17.5); LYMPHOCYTES 27.5 % (15-50); MCH 25.1 pg (26.0-34.0); MCHC 31.1 g/dL (31.0-37.0); MCV 80.6 fL (80.0-100.0); MEAN PLATELET VOLUME 9.5 fL (7.4-10.4); MONOCYTES 7.9 % (2-11); NEUTROPHILS 62.1 % (40-80); PLATELET COUNT 348 10x3/uL (130-400); RBC 3.87 10x6/uL (4.20-6.10); RDW 16.2 % (11.5-14.5); WBC 4.3 10x3/uL (4.8-10.8)
[2017-01-27 07:11] LABS: CALC OSMOLALITY 290 mosm/kg (275-300); CALCIUM 10.8 mg/dL (8.5-10.1); CARBON DIOXIDE 34.1 mmol/L (21.0-32.0); CHLORIDE - SERUM 103 mmol/L (98-107); CREATININE - SERUM 0.9 mg/dL (0.6-1.3); GLUCOSE 86 mg/dL (74-106); POTASSIUM - SERUM 3.4 mmol/L (3.5-5.1); SODIUM 141 mmol/L (136-145); UREA NITROGEN 43 mg/dL (7-18); eGFR NON AFRICAN AMERICAN 89 mL/min (90-120)
[2017-01-27 08:00] VITALS: BP 194/79
--- NOTE | 2017-01-27 09:30 | NUR ---
PATIENT UP IN WHEELCHAIR AT BEDSIDE. YARBROUGH CATH BAG LEAKING, CHANGED BY THIS NURSE. PATIENT IS ALERT/ORIENT X4. CALL LIGHT WITHIN REACH. DR. Latisha DALTON INTO SEE PATIENT NEW ORDERS FOR RESTASIS EYE DROPS RECEIVED.
--- NOTE | 2017-01-27 10:13 | NUR ---
PATIENT ADMITTED TO REHAB FROM ACUTE FLOOR. PATIENT RESIDES AT THE [facility] AND WILL RETURN THERE AT DISCHARGE. PATIENT REQUEST [facility] WHEN DISCHARGED. DME AT HOME: C-PAP, ROLLING WALKER AND SHOWER CHAIR. WILL CONTINUE TO FOLLOW WITH PATIENT
--- NOTE | 2017-01-27 13:43 | NUR ---
PATIENT SITTING UP IN WHEELCHAIR AT BEDSIDE. OXYGEN ON PER N/C AT 2L. NO RESPITORY DISTRESS NOTED.
--- NOTE | 2017-01-27 15:20 | NUR ---
PATIENT IS A STAND BY ASST. STEADY GAIT WITH WHEELED WALKER.
--- NOTE | 2017-01-27 19:00 | NUR ---
SITTING UP IN W/C WITH VISITORS PRESENT.
--- NOTE | 2017-01-27 21:00 | NUR ---
NOW IN RECLINER WITH LEGS ELEVATED. DENIES NEEDS.
[2017-01-27 21:45] VITALS: BP 135/54
--- NOTE | 2017-01-27 23:25 | NUR ---
ASSESSMENT AND HS MEDS COMPLETE. ASSISTED PATIENT INTO BED. DENIES NEEDS.
--- NOTE | 2017-01-28 02:15 | NUR ---
RESTING QUIETLY IN BED, EYES CLOSED.
--- NOTE | 2017-01-28 04:30 | NUR ---
RESTING IN BED, EYES CLOSED. RESPIRING QUIETLY.
--- NOTE | 2017-01-28 05:35 | NUR ---
GAVE PATIENT SCHEDULED PO PROTONIX. DENIES NEEDS.
--- NOTE | 2017-01-28 08:24 | NUR ---
PT UP ON SIDE OF BED EATING BREAKFAST TOLERATING WELL CALL LIGHT IN REACH WILL MONITER
[2017-01-28 08:32] VITALS: BP 192/83
--- NOTE | 2017-01-28 12:00 | NUR ---
PT RESTING IN BED WITH EYES OPEN CALL LIGHT IN REACH NO PROBLEMS WILL MONITER
--- NOTE | 2017-01-28 18:04 | NUR ---
PT RESTING IN BED WITH EYES OPEN CALL LIGHT IN REACH WILL MONITER
--- NOTE | 2017-01-28 19:30 | NUR ---
SITTING UP IN W/C. VISITORS PRESENT.
[2017-01-28 20:04] VITALS: BP 132/49
--- NOTE | 2017-01-28 21:20 | NUR ---
ASSESSMENT AND HS MEDS COMPLETE. DENIES NEEDS. PATIENT HAD A MEDIUM VOLUME SOFT FORMED BM ON COMMODE JUST PRIOR TO ASSIST BACK TO BED AND SUBSEQUENT DELIVERY OF HS MEDS.
--- NOTE | 2017-01-28 22:05 | NUR ---
RESTING IN BED, EYES CLOSED.
--- NOTE | 2017-01-29 00:05 | NUR ---
IN BED, EYES CLOSED. NO APPARENT DISCOMFORT.
--- NOTE | 2017-01-29 02:15 | NUR ---
CONTINUES IN BED, RESTING QUIETLY. APPEARS COMFORTABLE.
[2017-01-29 06:15] LABS: BASOPHILS 0.4 % (0-2); EOSINOPHILS 0.9 % (0-7); HEMATOCRIT 30.8 % (42.0-54.0); HEMOGLOBIN 9.4 g/dL (13.5-17.5); LYMPHOCYTES 17.2 % (15-50); MCH 24.5 pg (26.0-34.0); MCHC 30.5 g/dL (31.0-37.0); MCV 80.4 fL (80.0-100.0); MEAN PLATELET VOLUME 9.2 fL (7.4-10.4); NEUTROPHILS 69.5 % (40-80); PLATELET COUNT 293 10x3/uL (130-400); RBC 3.83 10x6/uL (4.20-6.10); RDW 16.1 % (11.5-14.5)
[2017-01-29 06:35] LABS: WBC 5.4 10x3/uL (4.8-10.8)
[2017-01-29 06:38] LABS: CALC OSMOLALITY 301 mosm/kg (275-300); CALCIUM 10.6 mg/dL (8.5-10.1); CHLORIDE - SERUM 106 mmol/L (98-107); CREATININE - SERUM 0.9 mg/dL (0.6-1.3); GLUCOSE 90 mg/dL (74-106); POTASSIUM - SERUM 3.3 mmol/L (3.5-5.1); SODIUM 145 mmol/L (136-145); UREA NITROGEN 49 mg/dL (7-18); eGFR NON AFRICAN AMERICAN 89 mL/min (90-120)
--- NOTE | 2017-01-29 08:40 | NUR ---
PATIENT IS ALERT/ORIENT X4. OXYGEN ON AT 2L PER N/C. NO SOB NOTED. F/C INTACK
[2017-01-29 08:52] VITALS: BP 138/72
--- NOTE | 2017-01-29 09:36 | NUR ---
Nutrition Follow Up: Pt is eating 100% meal avg on a diabetic diet. +BM 01/29/17. Labs reviewed. Meds noted including Lasix. Pt remains at low nutritional risk. Rec continue current diet. RD following.
--- NOTE | 2017-01-29 09:53 | NUR ---
PATIENT IN REHAB ROOM. DENIENS ANY PAIN/DISC AT THIS TIME. PATIENT IS A STAND BY ASST WITH TRANSFERS
--- NOTE | 2017-01-29 14:24 | NUR ---
PATIENT BEING DISCHARGED ON FRIDAY. BLADDER TRAINING STARTED
--- NOTE | 2017-01-29 19:14 | NUR ---
BLADDER TRAINING CONTINUES. PATIENT HAS STATED THE URGE TO URINATE
--- NOTE | 2017-01-29 20:35 | NUR ---
PT. SITTING UP IN W/C AND VISITING W/FRIENDS. NO VOICED NEEDS. IN THE PROCESS OF BLADDER TRAINING. ANSWERED PT'S QUESTIONS ABOUT PROCESS. ASSESSMENT COMPLETED. CALL LIGHT WITHIN REACH.
[2017-01-29 20:45] VITALS: BP 153/63
--- NOTE | 2017-01-29 23:51 | NUR ---
PT. IN BED WITH HOB UP FOR COMFORT WITH EYES CLOSED AND RESP. DEEP AND EVEN. YARBROUGH TO BSD AND BLADDER TRAINING CONTINUES. CALL LIGHT WITHIN REACH.
--- NOTE | 2017-01-30 03:18 | NUR ---
PT. IN BED WITH HOB UP FOR COMFORT. EYES CLOSED AND RESP. DEEP AND EVEN. YARBROUGH TO BSD AND BLADDER TRAINING CONTINUES. CALL LIGHT REMAINS WITHIN REACH.
--- NOTE | 2017-01-30 05:30 | NUR ---
8CC'S H2O REMOVED FROM YARBROUGH BALLOON AND YARBROUGH REMOVED SLOWLY WITHOUT ANY PROBLEMS. CATHETER TIP INTACT AND PT. TOLERATED PROCEDURE WITHOUT ANY C/O.
--- NOTE | 2017-01-30 05:58 | NUR ---
PT. HAS ALREADY VOIDED INTO URINAL 200CC'S AFTER HAVING YARBROUGH REMOVED WITHOUT ANY PROBLEMS.
--- NOTE | 2017-01-30 07:42 | NUR ---
LYING IN BED RESTING COMFORTABLY. OFFERS NO COMPLAINTS. DENIES PAIN. CALL LIGHT WITHIN REACH, BED LOW. WILL CONTINUE TO MONITOR
--- NOTE | 2017-01-30 11:44 | NUR ---
SITTING UP IN WHEELCHAIR LOOKING AT TV. NO S/SX OF DISTRESS. HR 52 CALL LIGHT WITHIN REACH. WILL CONTINUE TO MONITOR HR
--- NOTE | 2017-01-30 12:23 | NUR ---
EATING LUNCH. DENIES NEEDS OR C/O.
--- NOTE | 2017-01-30 14:34 | NUR ---
SITTING UP IN WHEELCHAIR SHAVING. OFFERS NO COMPLAINTS. CALL LIGHT WITHIN REACH. WILL CONTINUE TO MONITOR
[2017-01-30 16:58] VITALS: BP 184/74
[2017-01-30 19:58] VITALS: BP 131/59
--- NOTE | 2017-01-30 20:14 | NUR ---
PT IS SITTING IN A WC IN HIS ROOM. ALERT AND ORIENTED X 4. DENIES ANY PAIN OR DISCOMFORT. USING URINAL PRN. TELEMETRY UNIT IS ON AND INTACT. SR'S ARE UP X 2 IN BED. CALL LIGHT AND BEDSIDE TABLE ARE WITHIN EASY REACH.
--- NOTE | 2017-01-30 22:02 | NUR ---
PT ASSISTED TO THE BATHROOM WITH SBA. SMALL FORMED BM NOTED.
--- NOTE | 2017-01-30 23:53 | NUR ---
PT SITTING ON THE SIDE OF HIS BED USING HIS URINAL. NO NEEDS VOICED.
--- NOTE | 2017-01-31 00:54 | NUR ---
PT VOICED THAT HE WAS STARTING TO HAVE TROUBLE URINATING AND IT WAS HURTING BAD. BLADDER SCAN SHOWED 683CC RETENTION. DR DALTON NOTIFIED. IN AND OUT CATH DONE, PRODUCING 800 CC URINE. PT VOICED RELIEF.
--- NOTE | 2017-01-31 04:30 | NUR ---
PT VOICED COMPLAINT OF ABDOMINAL PAIN AND INABILITY TO URINATE. BLADDER SCAN SHOWS 999CC. IN AND OUT CATH DONE. 1100 CC RETURN NOTED.
--- NOTE | 2017-01-31 04:33 | NUR ---
RESTING IN BED WITH EYES CLOSED. NO S/S OF DISTRESS OBSERVED. USES URINAL AT HS. CALL LIGGHT AND OVERBED TABLE IN REACH.
--- NOTE | 2017-01-31 06:00 | NUR ---
PT SITTING ON THE SIDE OF HIS BED. STATES HE HAS THE URGE TO VOID AGAIN, BUT CANNOT. PT ENCOURAGED TO KEEP TRYING EVERY FEW MINUTES, BEFORE BEING POSSIBLY CATHETERIZED AGAIN.
[2017-01-31 06:13] LABS: BASOPHILS 0.5 % (0-2); EOSINOPHILS 1.3 % (0-7); HEMATOCRIT 31.2 % (42.0-54.0); HEMOGLOBIN 9.5 g/dL (13.5-17.5); IMMATURE GRANULOCYTES 0.3 % (0-5); LYMPHOCYTES 15.8 % (15-50); MCH 24.2 pg (26.0-34.0); MCHC 30.4 g/dL (31.0-37.0); MCV 79.6 fL (80.0-100.0); NEUTROPHILS 71.1 % (40-80); PLATELET COUNT 297 10x3/uL (130-400); RBC 3.92 10x6/uL (4.20-6.10); WBC 3.7 10x3/uL (4.8-10.8)
--- NOTE | 2017-01-31 06:52 | NUR ---
PT CONTINUES TO COMPLAIN OF INABILITY TO VOID. DR DALTON NOTIFIED. ORDERED TO REINSERT YARBROUGH CATHETER. MAKE FOLLOW UP APPT WITH UROLOGIST.
[2017-01-31 06:56] LABS: CALC OSMOLALITY 294 mosm/kg (275-300); CALCIUM 11.4 mg/dL (8.5-10.1); CARBON DIOXIDE 33.4 mmol/L (21.0-32.0); CHLORIDE - SERUM 102 mmol/L (98-107); GLUCOSE 106 mg/dL (74-106); SODIUM 141 mmol/L (136-145); UREA NITROGEN 52 mg/dL (7-18); eGFR NON AFRICAN AMERICAN 79 mL/min (90-120)
[2017-01-31 09:02] VITALS: BP 139/88
--- NOTE | 2017-01-31 11:44 | NUR ---
PATIENT DISCHARGING HOME BACK TO THE [facility]ILITY [facility] WILL FOLLOW WITH PATIENT AT HOME. [facility] WILL FOLLOW WITH PATIENT AT HOME AND HE WILL BE SEEN BY [facility] ON . DR. ESTRADA 03/03/17 @ 1:15, DR. BECERRA 04/29/17 @ 3:15, DR. KHAN 02/26/17 @ 3:00. PATIENT CHOICE FOR HOME HEALTH AND [facility] FORM SIGNED, EXPLAINED AND FILED IN CHART. ORDERS HAVE BEEN FAXED WITH CONFORMATION RECIEVED
--- NOTE | 2017-01-31 12:45 | NUR ---
PT DISCHARGED TO HOME THE [facility] WITH SWITCHBOARD WIRER DISCHARGE SUMMARY AND MEDS REVIEWED WITH PT AND COPIES SENT WITH SWITCHBOARD WIRER TO GO TO THE [facility] PT TOLERATED WELL
== END 2017-01-31 14:49 | disposition home health service (06) | DRG 91 ==
LOC: D.REHAB 20:30
PROVIDERS: ADMIT Emergency Medicine
DX: G72.89 Other specified myopathies (principal); I50.33 Acute on chronic diastolic (congestive) heart failure; J18.9 Pneumonia, unspecified organism; I13.0 Hypertensive heart and chronic kidney disease with heart failure and stage 1 through stage 4 chronic kidney disease, or unspecified chronic kidney disease; J90 Pleural effusion, not elsewhere classified; N18.9 Chronic kidney disease, unspecified; E11.22 Type 2 diabetes mellitus with diabetic chronic kidney disease; G47.33 Obstructive sleep apnea (adult) (pediatric); N40.0 Benign prostatic hyperplasia without lower urinary tract symptoms; D64.9 Anemia, unspecified; R53.81 Other malaise; R60.9 Edema, unspecified; R06.00 Dyspnea, unspecified; F41.8 Other specified anxiety disorders; R01.1 Cardiac murmur, unspecified; I44.30 Unspecified atrioventricular block; R31.9 Hematuria, unspecified; E11.65 Type 2 diabetes mellitus with hyperglycemia

== ENCOUNTER 2017-02-27 03:57 | Emergency (ER) | payer MEDICARE ==
[2017-01-22 11:30] VITALS: BMI 30.5
[2017-02-27 04:46] LABS: APPEARANCE HAZY (CLEAR); BILIRUBIN NEGATIVE (NEGATIVE); COLOR YELLOW (YELLOW); GLUCOSE NEGATIVE (NEGATIVE); KETONE NEGATIVE (NEGATIVE); NITRITE NEGATIVE (NEGATIVE); PROTEIN 3+ mg/dL (NEGATIVE); UROBILINOGEN NORMAL (NORMAL)
[2017-02-27 04:47] LABS: BACTERIA FEW /hpf (NONE SEEN); EPITHELIAL CELLS 0-5 /hpf (0-5)
== END 2017-02-27 04:30 | disposition home or self-care (01) ==
LOC: D.ER 03:57
PROVIDERS: Family Medicine
DX: R33.9 Retention of urine, unspecified (principal)

== ENCOUNTER → 2017-08-11 19:28 | Outpatient (CLI) | payer MEDICARE ==
[2017-01-22 11:30] VITALS: BMI 30.5
== END | disposition home or self-care (01) ==
LOC: D.SLEEP 19:28
DX: G47.33 Obstructive sleep apnea (adult) (pediatric) (principal)

== ENCOUNTER → 2017-10-21 18:45 | Outpatient (CLI) | payer MEDICARE ==
[2017-01-22 11:30] VITALS: BMI 30.5
[2017-10-21 19:58] LABS: ALBUMIN 3.9 g/dL (3.4-5.0); ALKALINE PHOSPHATASE 45 U/L (46-116); ALT (SGPT) 15 U/L (10-68); BILIRUBIN - DIRECT 0.16 mg/dL (0.00-0.30); BILIRUBIN - INDIRECT 0.24 mg/dL (0.00-1.00); CALC OSMOLALITY 301 mosm/kg (275-300); CALCIUM 10.5 mg/dL (8.5-10.1); CARBON DIOXIDE 31.5 mmol/L (21.0-32.0); CHLORIDE - SERUM 106 mmol/L (98-107); CHOL - HDL RATIO 2.5 ratio (2.3-4.9); CHOLESTEROL, TOTAL 117 mg/dL (0-200); CKMB 1.1 U/L (0.0-3.6); CREATINE KINASE 58 UL (21-232); CREATININE - SERUM 1.2 mg/dL (0.6-1.3); GLUCOSE 98 mg/dL (74-106); HDL CHOLESTEROL 46 mg/dL (32-96); LDL CHOLESTEROL 67 mg/dL (0-100); LDL-HDL RATIO 1.5 ratio (1.5-3.5); POTASSIUM - SERUM 3.7 mmol/L (3.5-5.1); PROTEIN - SERUM 7.1 g/dL (6.4-8.2); SODIUM 146 mmol/L (136-145); TRIGLYCERIDE 24 mg/dL (30-200); UREA NITROGEN 42 mg/dL (7-18); eGFR NON AFRICAN AMERICAN 64 mL/min (90-120)
== END | disposition home or self-care (01) ==
LOC: D.LABREF 18:45
PROVIDERS: Internal Medicine Cardiovascular Disease
DX: E78.5 Hyperlipidemia, unspecified (principal); I10 Essential (primary) hypertension

== ENCOUNTER → 2018-03-27 10:11 | Outpatient (CLI) | payer MEDICARE ==
[2017-01-22 11:30] VITALS: BMI 30.5
--- NOTE | ~2018-03-27 | EC ---
PATIENT:BANDAR NORTH DATE OF SERVICE: 03/27/18 SEX: M MEDICAL RECORD: [id number] DATE OF : 46 LOCATION:D.RT AGE OF PATIENT: 67 ADMISSION DATE: 03/27/18 REFERRING PHYSICIAN: INTERPRETING PHYSICIAN: LINDA VALADEZ MD ECHOCARDIOGRAM REPORT ECHO CHARGES 4 ECHO COMPLETE Date: 03/27/18 CLINICAL DIAGNOSIS: HX OF PNEUMONIA,PULMONARY HTN ECHOCARDIOGRAPHIC MEASUREMENTS (adult normal given) AC root (d.<3.7cm) 4.8 cm LV Septum d (<1.2 cm> 2.2 cm Valve Excursion 2.3 cm LV Septum (systole) 2.6 cm Left Atria (s.<4.0cm> 4.0 cm LVPW d(<1.2cm) 1.3 cm RV (d.<2.3cm) 6.2 cm LVPW (sytole) 2.6 cm LV diastole(<5.6CM) 4.8 cm MV E-F(>70mm/sec) cm LV systole 2.6 cm LVOT Diameter 1.9 cm MV exc.(>10mm) 2.1 cm Est.ejection fraction (50-75%) % DOPPLER: LVIT cm/sec A 97.0 cm/sec E 78.0 cm/sec LA cm/sec RVSP 34 mmHg LVOT 117 cm/sec AOP1/2T m/s Asc. Ao 162 cm/sec RVOT 109 cm/sec RA cm/sec PA 140 cm/sec AV Gradient Peak 10.50mmHg AV Mean 5.64 mmHg AV Area 1.89 cm MV Gradient Peak 3.95 mmHg MV Mean 1.51 mmHg MV Area cm COMMENTS: Sap Hana Architect: Pino ROONEY [employer]: 1 Dr. Valadez TAPE# pacs Pericardial Effusion N DATE OF SERVICE: 03/27/2018 PROCEDURE: Echocardiogram. FINDINGS: 1. Left ventricular chamber size is within normal limits. Left ventricular systolic function is normal. Overall ejection fraction estimated at 60%. 2. Left atrium is upper limits of normal at 4.0 cm. Right atrium and right ventricle chamber sizes are severely dilated. 3. Valvular structures have normal structure and motion. ECHOCARDIOGRAM REPORT [id number] BANDAR NORTH 4. Doppler interrogation reveals only mild tricuspid regurgitation, no other valvular insufficiency or stenosis. Pulmonary systolic pressure is estimated at 34 mmHg. 5. No evidence of pericardial effusion or left ventricular thrombus. 6. The patient had multiple episodes of bradycardia into the 30s during the echocardiogram. TRANSINT:[id number] Voice Confirmation ID: [id number] DOCUMENT ID: [id number] LINDA VALADEZ MD at 1031 CC: [id number] DICTATION DATE: 03/27/18 1350 TECHNICAL AGRONOMIST: 03/27/18 1448 DEP CLI 03/27/18 [id number] [place] [address]
== END | disposition home or self-care (01) ==
LOC: D.RT 10:00
DX: Z87.01 Personal history of pneumonia (recurrent) (principal); I27.20 Pulmonary hypertension, unspecified

== ENCOUNTER → 2018-04-07 11:19 | Outpatient (CLI) | payer MEDICARE ==
[2017-01-22 11:30] VITALS: BMI 30.5
[2018-04-07 11:50] LABS: ANION GAP 12.3 mmol/L (8-16); CALCIUM 8.7 mg/dL (8.5-10.1); CARBON DIOXIDE 30.3 mmol/L (21.0-32.0); CREATININE - SERUM 1.4 mg/dL (0.6-1.3); POTASSIUM - SERUM 3.6 mmol/L (3.5-5.1)
== END | disposition home or self-care (01) ==
LOC: D.LABREF 11:19
PROVIDERS: Internal Medicine Cardiovascular Disease
DX: I10 Essential (primary) hypertension (principal)

== ENCOUNTER 2018-05-05 11:01 | Outpatient (CLI) | payer MEDICARE ==
[~2018-05-05] VITALS: Ht 177.8 cm; Wt 111.4 kg
--- NOTE | ~2018-05-05 | OP ---
PATIENT NAME: DEANDRE JORDAN MEDICAL RECORD: [id number] :48 LOCATION:D.M2 D.2119 ADMISSION DATE: SURGEON: MINDA ROWLEY MD DATE OF OPERATION: 05/05/2018 PROCEDURE: Lead portion of permanent pacemaker placement. INDICATION: Sick sinus syndrome, bradyarrhythmias. SURGEON: Antonio Leonard MD DESCRIPTION OF PROCEDURE: After left subclavian was cannulated via modified Seldinger technique via Dr. Leonard. First under fluoroscopic guidance, I placed the RV lead in the RV apex without difficulty. Next, after adequate R waves and thresholds were obtained, I then placed the right atrial lead into the right atrial appendage without difficulty, again under fluoroscopic guidance. After adequate P waves and thresholds were obtained, the leads were attached to appropriate poles of the generator and the pocket was closed via Dr. Leonard. IMPRESSION: Successful lead portion of permanent pacemaker placement on Deandre Jordan. ESTIMATED BLOOD LOSS: Minimal. DISPOSITION: To the floor, stable. COMPLICATIONS: None. TRANSINT:[id number] Voice Confirmation ID: [id number] DOCUMENT ID: [id number] MINDA ROWLEY MD at 1546 CC: [id number] DICTATION DATE: 05/05/18 1442 FLUMER: 05/05/18 1531 [facility] [address] [place] [address]
--- NOTE | ~2018-05-05 | OP ---
PATIENT NAME: BANDAR NORTH MEDICAL RECORD: [id number] :48 LOCATION:D.CAT ADMISSION DATE: SURGEON: SANDI CALVO MD DATE OF OPERATION: 05/05/2018 PREOPERATIVE DIAGNOSES: 1. Symptomatic bradycardia. 2. Hypertension. 3. Tobacco dependence syndrome. POSTOPERATIVE DIAGNOSES: 1. Symptomatic bradycardia. 2. Hypertension. 3. Tobacco dependence syndrome. PROCEDURE: Left subclavian vein dual lead pacemaker placement with fluoroscopic interpretation. SURGEON: Sandi Calvo MD CO-SURGEON: Young Piña MD REPORT OF OPERATION: The patient's left chest was prepped and draped in sterile fashion. A 25 mL of 1% lidocaine with epinephrine was infused into the surrounding tissues. A transverse incision was made in the left upper lateral chest and a subcutaneous pouch was made over the pectoral fascia. A needle was used to cannulate the left subclavian vein times 2 and wires were advanced with ease. Over the wires, dilators were placed. Fluoro was used to note that all the wires and dilators were in good position. The wires and dilators were removed and the leads were advanced into the venous system. At this point, Dr. Piña positioned the leads appropriately in atrium and ventricle. Once the leads were noted to be functioning appropriately, then they were sutured into place with #0 Ti-Cron. These were then affixed to the pacemaker and the pacemaker was placed into the subcutaneous pouch. We irrigated out the wound with antibiotic solution. The subcutaneous tissues were reapproximated with interrupted 3-0 Vicryl and the skin was closed with running subcutaneous 5-0 Monocryl. COMPLICATIONS: None. CONDITION: Stable. ANESTHESIA: Local MAC. BLOOD LOSS: Minimal. TRANSINT:[id number] Voice Confirmation ID: [id number] DOCUMENT ID: [id number] OPERATIVE REPORT [id number] BANDAR NORTH SANDI CALVO MD at 1636 CC: [id number] DICTATION DATE: 05/05/18 1456 SENIOR EDITOR: 05/05/18 1635 DEP CLI 05/06/18 [place] [address]
--- NOTE | ~2018-05-05 | DS ---
PATIENT:BANDAR JORDAN :46 MEDICAL RECORD: [id number] DISCHARGE SUMMARY ADMISSION DATE: 05/05/18 DISCHARGE DATE: 05/06/18 DIAGNOSES: 1. Sick sinus syndrome. 2. Symptomatic bradycardia. 3. Hypertension. 4. Coronary artery disease. Mr. Jordan presents with bradycardia that was symptomatic. He underwent pacemaker by Dr. Piña, had no further bradycardia and no further symptomatology. Discharged home to follow up in one month. TRANSINT:[id number] Voice Confirmation ID: [id number] DOCUMENT ID: [id number] LINDA ARANDA MD at 1456 CC: [id number] DICTATION DATE: 05/06/18805 MANAGER CRITICAL CARE: 05/06/182126 [facility] CLI 05/06/18 [id number] [place] [address]
--- NOTE | ~2018-05-05 | HEMODYNAMI ---
PATIENT:BANDAR NORTH MEDICAL RECORD: [id number] : 46 LOCATION:D.CAT ADMISSION DATE: 05/05/18 Generatedon:05/05/201814:51 Patient name: BANDAR NORTH Patient #: [id number] SSN: : 1950 Date of study: 05/05/2018 Page: Of Hemodynamic Procedure Report Patient Data Patient Demographics Procedure consent was obtained First Name: BANDAR Gender: Male Last Name: CAN : 1950 Patient #: [id number] Age: 67 year(s) Race: Additional ID: [id number] Contact details Address: [address] [place] [address] ROAD State: [place] City: [place] Zip code: [address] Admission Admission Data Admission Date: 05/05/2018 Admission Time: 11:01 Procedure Procedure Types Cath Procedure Diagnostic Procedure PPM/ICD PPM Dual Implant Sedation Charges Moderate Sedation up to 30 minutes Procedure Description Procedure Date Procedure Date: 05/05/2018 Procedure Start Time: 14:06 Procedure End Time: 14:47 Procedure Staff Name Function Young Slade MD Performing Physician Antonio Leonard MD Assisting physician Seema Aquino RT Monitor Miley Quiñones RT Scrub Janette Brewer RN Nurse Procedure Data Cath Procedure Fluoroscopy Diagnostic fluoroscopy Total fluoroscopy Time: 3.1 time: 3.1 min min Diagnostic fluoroscopy Total fluoroscopy dose: dose: 134.75 mGy 134.75 mGy Contrast Material Contrast Material Type Amount (ml) Isovue 300 0 Estimated blood loss: 5 ml Procedure Complications No complications Procedure Medications Medication Administration Route Dosage Oxygen NC 2 l/min Lidocaine 1% added to field 20 Ancef (1Gm/50ml NS) I.V.P.B 1 g Ancef Irrigation Topical 1 g (1gm/500ml NS) Versed 2 mg Fentanyl I.V. 100 mcg Versed 1 mg Fentanyl I.V. 50 mcg Versed 1 mg Fentanyl I.V. 50 mcg Hemodynamics Rest Heart Rate: 53 (bpm) Snapshots Pre Cath Intra NCS Post Cath Vital Signs Time Heart Resp SPO2 etCO2 NIBP (mmHg) Rhythm Pain Sedation Rate (ipm) (%) (mmHg) Status Level (bpm) 13:15:26 55 24 94 0 180/94(149) SB 0 (11) 10(A) , No pain 13:19:56 55 30 95 0 170/95(146) SB 0 (11) 10(A) , No pain 13:24:25 53 19 94 0 171/91(142) SB 0 (11) 10(A) , No pain 13:28:49 58 15 94 0 155/81(139) SB 0 (11) 10(A) , No pain 13:33:13 54 17 94 0 156/91(123) SB 0 (11) 10(A) , No pain 13:37:37 52 17 94 0 160/91(139) SB 0 (11) 10(A) , No pain 13:42:53 55 15 95 0 158/87(136) SB 0 (11) 10(A) , No pain 13:47:19 55 13 94 0 156/86(131) SB 0 (11) 10(A) , No pain 13:52:43 52 14 94 0 139/84(118) SB 0 (11) 10(A) , No pain 13:57:56 53 16 94 0 143/84(117) SB 0 (11) 10(A) , No pain 14:02:18 52 17 94 0 144/82(121) SB 0 (11) 10(A) , No pain 14:06:36 52 14 93 0 135/81(115) SB 0 (11) 9(A) , No pain 14:11:54 53 15 94 0 142/86(121) SB 0 (11) 9(A) , No pain 14:17:01 51 13 94 0 150/81(112) SB 0 (11) 9(A) , No pain 14:22:18 80 15 94 0 127/84(119) SB 0 (11) 9(A) , No pain 14:26:32 55 17 93 0 132/77(115) SB 0 (11) 9(A) , No pain 14:30:53 57 12 94 0 142/81(114) SB 0 (11) 9(A) , No pain 14:36:08 50 14 94 0 115/81(107) SB 0 (11) 9(A) , No pain 14:40:16 59 15 94 0 131/90(122) SB 0 (11) 10(A) , No pain 14:44:44 59 17 96 0 147/77(121) SB 0 (11) 10(A) , No pain Medications Time Medication Route Dose Verified Delivered Reason Notes Effectiv eness by by 13:17:35 Oxygen NC 2 Young Buffie used for l/min BerlinJay Brewer snow blower 13:17:43 Lidocaine added 20ml Young Raviian for local 1% to vial St Jay Leonard MD anesthetic field 13:18:09 Ancef Topical 1 g Young Raviian used for Irrigation St Jay Leonard MD procedure (1gm/500ml NS) 13:20:54 Ancef I.V.P.B 1 g Young Buffie used for (1Gm/50ml [place] Brewer snow blower NS) 14:03:49 Versed 2 mg Young Buffie for [place] Brewer RN sedation 14:03:58 Fentanyl I.V. 100 Young Buffie for mcg [place] Brewer RN sedation 14:10:26 Versed 1 mg Young Buffie for [place] Brewer RN sedation 14:10:32 Fentanyl I.V. 50 Young Buffie for mcg [place] Brewer RN sedation 14:15:51 Versed 1 mg Young Buffie for [place] Brewer RN sedation 14:15:55 Fentanyl I.V. 50 Young Buffie for [facility] [place] Brewer RN sedation Procedure Log Time Note 12:59:18 Miley Counts RT(R) sent for patient. Start room use. 12:59:19 Time tracking: Regular hours (M-F 7:00 - 5:00) 12:59:24 Plan of Care:Hemodynamics will remain stable., Cardiac rhythm will remain stable., Comfort level will be maintained., Respiratory function will remain adequate., Patient/ family verbilizes understanding of procedure., Procedure tolerated without complication., Recovers from procedure without complications.. 13:05:31 Patient received from Pre/Post Procedure Room to CCL 3 Alert and oriented. Tansferred to table in Supine position. 13:05:33 Warm blankets applied, and neris hugger turned on for patient comfort. 13:05:33 Correct patient and procedure confirmed by team. 13:05:33 Correct patient and procedure confirmed by team. 13:05:35 Signed procedure consent form obtained from patient. 13:05:36 ECG and BP/O2 sat monitors applied to patient. 13:14:05 Vital chart was started 13:14:06 Full Disclosure recording started 13:16:49 Baseline sample Acquired. 13:16:56 H&P Date Dictated: 05/05/2018 Within 30 days and on chart., H&P Addendum completed by physician on day of procedure. (MUST COMPLETE FOR ALL OUTPATIENTS). 13:16:58 Pre-procedure instructions explained to patient. 13:16:58 Pre-op teaching completed and patient verbalized understanding. 13:17:00 Family in waiting room. 13:17:03 Patient NPO since Midnight. 13:17:06 Is the patient allergic to Iodine/contrast media? No. 13:17:07 Was the patient premedicated? No 13:17:08 Is patient on blood thinner?No 13:17:10 Patient diabetic? Yes. 13:17:12 If diabetic: On Metformin? No 13:17:16 Previous problem with sedation/anesthesia? No ? 13:17:22 Snore? Yes 13:17:23 Sleep apnea? Yes 13:17:25 Deviated septum? No 13:17:26 Opens mouth fully? Yes 13:17:26 Sticks out tongue? Yes 13:17:30 Airway obstruction? No ? 13:17:35 Oxygen 2 l/min NC was administered by Janette Brewer RN; used for procedure; 13:17:43 Lidocaine 1% 20ml vial added to field was administered by Antonio Leonard MD; for local anesthetic; 13:17:55 Dentures? No ? 13:18:09 Ancef Irrigation (1gm/500ml NS) 1 g Topical was administered by Antonio Leonard MD; used for procedure; 13:18:16 Pre procedure: left dorsailis pedis pulse 2+ Normal; easily identifiable; not easily obliterated 13:18:18 Pre procedure: right posterior tibial pulse 2+ Normal; easily identifiable; not easily obliterated 13:18:21 Patient pain scale 0/10 ?. 13:18:28 IV patent on arrival in left forearm with 0.9% NaCl at O. 13:18:30 Lab results completed and on chart. 13:18:37 Left chest area was prepped with chlora-prep and draped in sterile fashion 13:18:38 Alarms reviewed by R. N. 13:18:39 Sharps counted by scrub and verified by R.N. 13:20:54 Ancef (1Gm/50ml NS) 1 g I.V.P.B was administered by Janette Brewer RN; used for procedure; 13:23:05 Medtronic Advisa MRI PPM Dual Generator [id number] opened to sterile field. 13:25:53 Medtronic 4074-52 PPM Lead opened to sterile field. 13:26:14 Medtronic 4574-45 PPM Lead opened to sterile field. 14:02:56 Physician arrived 14:02:56 --------ALL STOP TIME OUT------ 14:02:57 Final Timeout: patient, procedure, and site verified with staff and physician. All members of the team are in agreement. 14:03:03 Left chest site verified by team. 14:03:16 Physical assessment completed. ASA score P 2 - A patient with mild systemic disease as per Antonio Leonard MD. 14:03:22 Sedation plan: IV Moderate Sedation Medication:Versed, Fentanyl 14:03:32 Use device set LUBNA PPM 14:03:38 2-0 Ticron Multipack ([id number]) opened to sterile field. 14:03:39 3-0 Vicryl Single Pack [id number] opened to sterile field. 14:03:40 5-0 Monocryl PS2 [id number] opened to sterile field. 14:03:40 Cautery Tip Cable Installer Repairer opened to sterile field. 14:03:42 Cautery Pushbutton Pencil opened to sterile field. 14:03:42 Mepilex Dressing ([id number]) opened to sterile field. 14:03:45 Immobilizer Extra Large opened to sterile field. 14:03:49 Versed 2 mg was administered by Janette Brewer RN; for sedation; 14:03:58 Fentanyl 100 mcg I.V. was administered by Janette Brewer RN; for sedation; 14:04:00 Procedure started. 14:04:09 Medtronic GILLIAN GUTIERREZOE present for procedure. 14:04:26 Pre sharps counted by scrub and verified by RN: Sutures: 10; Sponges: 5; Stick needles: 2; Skin needles: 2; Blade: 1; Cautery: 1 14:04:29 Grounding pad site Left thigh. 14:04:31 Grounding pad site free from injury. 14:06:31 Lidocaine 1% w/epi was administered to left subclavicular area by Antonio Leonard MD . 14:06:43 Incision made to left subclavicular area. 14:09:08 Generator pocket made/opened. 14:10:26 Versed 1 mg was administered by Janette Brewre RN; for sedation; 14:10:32 Fentanyl 50 mcg I.V. was administered by Janette Brewer RN; for sedation; 14:11:07 Left subclavian vein accessed with 7Fr Peel Away Sheath. 14:13:35 Left subclavian vein accessed with 7Fr Peel Away Sheath. 14:13:58 Ventricular lead inserted and advanced. 14:14:11 Atrial lead inserted and advanced. 14:15:51 Versed 1 mg was administered by Janette Brewer RN; for sedation; 14:15:55 Fentanyl 50 mcg I.V. was administered by Janette Brewer RN; for sedation; 14:19:45 Ventricular lead positioned. 14:21:30 Atrial lead positioned. 14:21:34 Peel-a-way sheath was split and removed. 14:21:35 Peel-a-way sheath was split and removed. 14:25:01 Ventricular lead attachment was completed with 2-0 ticron. 14:25:04 Atrial lead attachment was completed with 2-0 ticron. 14:27:29 PPM Dual was attached to lead(s) and inserted into pocket. 14:28:31 Generator was sutured in place with 2-0 ticron. 14:28:37 Device pocket was irrigated with Ancef. 14:34:48 3-0 Vicryl Single Pack [id number] opened to sterile field. 14:34:49 2-0 Ticron Multipack ([id number]) opened to sterile field. 14:35:30 2.0 ticron sutures removed from generator and both leads for repositioning 14:38:24 Ventricular lead attachment was completed with 2-0 ticron. 14:38:27 Atrial lead attachment was completed with 2-0 ticron. 14:38:37 PPM Dual was attached to lead(s) and inserted into pocket. 14:38:45 Generator was sutured in place with 2-0 ticron. 14:40:12 Device pocket was irrigated with Ancef. 14:43:38 Subcutaneous closure was completed with 3-0 vicryl plus. 14:44:08 Parameters-- Generator: Mode: DDDR. Lower Rate: 60bpm. Upper Rate: 120bpm. 14:44:34 Parameters--Ventricular P/R Wave: 16.6mV. Current: 0.2mA; Threshold: 0.3V; Impedence: 1008OHMS. 14:44:52 Parameters--Atrial P/R Wave: 3.7mV. Current: 0.2mA; Threshold: 0.1V; Impedence: 625OHMS. 14:45:03 Skin closure was completed with 5-0 monocryl. 14:45:28 Lt Chest incision was dressed with Mepilex dressing. 14:45:37 Procedure ended.(Physican Out) 14:46:00 Fluoroscopy time 03.10 minutes. 14:46:08 Fluoroscopy dose: 134.75 mGy 14:46:08 Flurop Dose total: 134.75 14:46:11 Contrast amount:Isovue 300 0ml. 14:46:13 Sharps counted by scrub and verified by R.N. 14:46:15 Insertion/operative site no bleeding no hematoma. 14:46:23 Post Procedure Pulses reassessed and unchanged 14:46:27 Post procedure rhythm: paced 14:46:30 Estimated blood loss: 5 ml 14:46:33 Post procedure instruction explained to patient.Patient verbalizes understanding. 14:46:33 Patient needs reinforcement of post procedure teaching. 14:46:42 Procedure type changed to Cath procedure, Diagnostic procedure, PPM/ICD, PPM Dual Implant, Sedation Charges, Moderate Sedation up to 30 minutes 14:46:43 Procedure and supply charges have been captured, reviewed, submitted and are correct. 14:46:48 Procedure Complication : No complications 14:46:50 Vital chart was stopped 14:46:51 See physician's report for complete and final results. 14:46:56 Report given to [facility]. 14:47:02 Patient transfered to [facility] with Stretcher. 14:47:09 Procedure ended. 14:47:09 Full Disclosure recording stopped 14:47:16 End room use (Document Last) Device Usage Item Name Manufacture Quantity Catalog Hospital Part Current Minimal Lot# / Number Charge Number Stock Stock Serial# Code Medtronic Medtronic 1 [id number] 5 [id number] Advisa MRI EXP PPM Dual 08-14-2019 Generator [id number] Medtronic Medtronic 1 4074-52 [id number] 5 [id number] 4074-52 PPM EXP Lead 01-10-2020 Medtronic Medtronic 1 4574-45 [id number] 5 [id number] 4574-45 PPM EXP Lead 11-06-2019 2-0 Ticron Ethicon 2 [id number] 54921 [id number] 5 Multipack ([id number]) 3-0 Vicryl Ethicon 2 [id number] 936595 958409 182256 5 Single Pack [id number] 5-0 Monocryl Ethicon 1 [id number] 115861 455365 294278 5 PS2 [id number] Cautery Tip Microtek 1 [id number] 155999 [id number] [id number] 5 Cable Installer Repairer [employer] Cautery Microtek 1 [id number] 788892 82996 420571 5 Pushbutton Medical Inc[employer] Pencil Mepilex Cardinal 1 969293 395927 752023 922080 5 Dressing Health ([id number]) Immobilizer Cardinal 1 [id number] 119452 897607 883828 5 Extra Large Health Signature Audit [place] Stage Time Signature Unsigned Intra-Procedure 05/05/2018 Seema Aquino 2:51:11 PM RT(R) Signatures Monitor : Seema Aquino RT Signature : Date : Time : [facility] [address] [place] [address]
[2018-05-05 11:42] VITALS: BP 120/81; BMI 35.2
[2018-05-05] MEDS ORDERED: COLACE100 MG PO (11:55)
[2018-05-05] MEDS ORDERED: FLUTICASONE PRO16 GM NASAL (11:56)
[2018-05-05] MEDS ORDERED: ATROVENT 0.02%2.5 ML UPD (11:57)
[2018-05-05 12:01] LABS: HEMATOCRIT 39.2 % (42.0-54.0); HEMOGLOBIN 12.6 g/dL (13.5-17.5); MCH 26.3 pg (26.0-34.0); MCHC 32.1 g/dL (31.0-37.0); MCV 81.7 fL (80.0-100.0); MEAN PLATELET VOLUME 10.2 fL (7.4-10.4); RBC 4.8 10x6/uL (4.20-6.10); RDW 16.3 % (11.5-14.5); WBC 6.5 10x3/uL (4.8-10.8)
[2018-05-05 12:16] LABS: ANION GAP 12.3 mmol/L (8-16); CALCIUM 9.2 mg/dL (8.5-10.1); CARBON DIOXIDE 30.6 mmol/L (21.0-32.0); CREATININE - SERUM 1.2 mg/dL (0.6-1.3)
[2018-05-05 12:18] LABS: APTT 32.2 SECONDS (22.8-39.4); INR 1.15 (0.85-1.17); PROTIME 14.2 SECONDS (11.6-15.0)
[2018-05-05 12:21] LABS: POTASSIUM - SERUM 2.9 mmol/L (3.5-5.1)
[2018-05-05 15:42] VITALS: BP 154/96; Ht 177.8 cm; Wt 111.4 kg
[2018-05-06 04:00] VITALS: BP 195/99
[2018-05-06 08:25] VITALS: BP 194/93
== END 2018-05-06 12:14 ==
LOC: D.CATH 11:01 → D.M2 15:12 → D.CATH 05-06 12:14
PROVIDERS: Internal Medicine Interventional Cardiology
DX: I49.5 Sick sinus syndrome (principal); I10 Essential (primary) hypertension; I25.10 Atherosclerotic heart disease of native coronary artery without angina pectoris; F17.200 Nicotine dependence, unspecified, uncomplicated; Z01.812 Encounter for preprocedural laboratory examination

== ENCOUNTER 2018-05-09 09:23 | Emergency (ER) | payer MEDICARE ==
[~2018-05-09] VITALS: Ht 177.8 cm; Wt 112.3 kg
[~2018-05-09 09:23] MED LIST changes: +ATROVENT 0.02%2.5 ML UPD; +COLACE100 MG PO; +FLUTICASONE PRO16 GM NASAL
[2018-05-09] MEDS ORDERED: ISOSORBIDE MONO60 M1 PO (09:29)
[2018-05-09 09:43] VITALS: Ht 177.8 cm; Wt 112.3 kg
[2018-05-09 10:15] LABS: BASOPHILS 0.3 % (0-2); EOSINOPHILS 8.3 % (0-7); HEMATOCRIT 39.5 % (42.0-54.0); HEMOGLOBIN 12.5 g/dL (13.5-17.5); IMMATURE GRANULOCYTES 0.2 % (0-5); MCH 26.2 pg (26.0-34.0); MCHC 31.6 g/dL (31.0-37.0); MCV 82.8 fL (80.0-100.0); MONOCYTES 8.2 % (2-11); PLATELET COUNT 180 10x3/uL (130-400); RBC 4.77 10x6/uL (4.20-6.10); RDW 16.4 % (11.5-14.5); WBC 5.9 10x3/uL (4.8-10.8)
[2018-05-09 10:24] LABS: INR 1.13 (0.85-1.17)
[2018-05-09 10:25] LABS: APTT 29.9 SECONDS (22.8-39.4)
[2018-05-09 10:28] LABS: ALBUMIN 3.1 g/dL (3.4-5.0); ALKALINE PHOSPHATASE 34 U/L (46-116); ALT (SGPT) 13 U/L (10-68); CALC OSMOLALITY 300 mosm/kg (275-300); CALCIUM 8.5 mg/dL (8.5-10.1); CARBON DIOXIDE 31.4 mmol/L (21.0-32.0); CHLORIDE - SERUM 106 mmol/L (98-107); CREATININE - SERUM 1.2 mg/dL (0.6-1.3); GLUCOSE 125 mg/dL (74-106); POTASSIUM - SERUM 3.1 mmol/L (3.5-5.1); PROTEIN - SERUM 6.7 g/dL (6.4-8.2); SODIUM 146 mmol/L (136-145); UREA NITROGEN 37 mg/dL (7-18); eGFR NON AFRICAN AMERICAN 64 mL/min (90-120)
[2018-05-09 10:45] LABS: CKMB 1.5 U/L (0.0-3.6); CREATINE KINASE 59 UL (21-232); TROPONIN-I 0.016 ng/mL (0.000-0.060)
[2018-05-09] MEDS ORDERED: CATAPRES0.1 MG PO (11:03)
[2018-05-09 13:00] VITALS: BP 159/83
== END 2018-05-09 13:00 | disposition other institution (70) ==
LOC: D.ER 09:23
PROVIDERS: Family Medicine
DX: I10 Essential (primary) hypertension (principal); E87.0 Hyperosmolality and hypernatremia; E87.6 Hypokalemia

== ENCOUNTER → 2019-03-26 13:01 | Outpatient (CLI) | payer MEDICARE ==
[2018-05-09 09:43] VITALS: BMI 35.5
[~2019-03-26 13:01] MED LIST changes: +CATAPRES0.1 MG PO; +ISOSORBIDE MONO60 M1 PO
--- NOTE | 2019-03-30 16:04 | EC ---
PATIENT:BANDAR NORTH DATE OF SERVICE: 03/26/19 SEX: M MEDICAL RECORD: [id number] DATE OF : [birth year] LOCATION:D.[facility] AGE OF PATIENT: 68 ADMISSION DATE: 03/26/19 REFERRING PHYSICIAN: INTERPRETING PHYSICIAN: MINDA ROWLEY MD ECHOCARDIOGRAM REPORT ECHO CHARGES 4 ECHO COMPLETE Date: 03/26/19 CLINICAL DIAGNOSIS: PULMONARY HTN ECHOCARDIOGRAPHIC MEASUREMENTS (adult normal given) AC root (d.<3.7cm) 3.1 cm LV Septum d (<1.2 cm> 2.2 cm Valve Excursion 2.0 cm LV Septum (systole) 2.7 cm Left Atria (s.<4.0cm> 5.0 cm LVPW d(<1.2cm) 1.1 cm RV (d.<2.3cm) 3.6 cm LVPW (sytole) 1.1 cm LV diastole(<5.6CM) 5.5 cm MV E-F(>70mm/sec) cm LV systole 3.1 cm LVOT Diameter 2.2 cm MV exc.(>10mm) cm Est.ejection fraction (50-75%) % DOPPLER: LVIT cm/sec A 61 cm/sec E 78 cm/sec LA cm/sec RVSP 51.0 mmHg LVOT 105 cm/sec AOP1/2T m/s Asc. Ao 178 cm/sec RVOT 91 cm/sec RA cm/sec PA 103 cm/sec AV Gradient Peak 12.7 mmHg AV Mean 6.0 mmHg AV Area 2.4 cm MV Gradient Peak 8.3 mmHg MV Mean 3.9 mmHg MV Area cm COMMENTS: Promos Executive Producer: Kalli [facility] Sliver Former: 3 Dr. Piña TAPE# PACS Pericardial Effusion N DATE OF SERVICE: Adequate 2D, color-flow, spectral Doppler, and M-mode. LVH is present. LV internal dimension is normal. Wall motion is normal. EF is greater than or equal to 55%. Aortic valve is tricuspid. No evidence of stenosis by Doppler interrogation. Left atrium dilated at 5.0 cm. Mitral valve shows no prolapse. Trace MR. Right-sided chambers are upper limits of normal to mildly dilated. Mild TR. RV systolic pressure estimated at greater than or equal to 51 mmHg via the continuity equation. ECHOCARDIOGRAM REPORT [id number] BANDAR NORTH TRANSINT:[id number] Voice Confirmation ID: [id number] DOCUMENT ID: [id number] MINDA ROWLEY MD at 1604 CC: [id number] DICTATION DATE: 03/29/191417 ANATOMIC PATHOLOGY ASSISTANT: 03/29/19 1432 DEP CLI 03/26/19 [place] [id number] [place] [id number]
== END | disposition home or self-care (01) ==
LOC: D.ECHO 11:00 → D.RT 13:00 → D.ECHO 13:01
PROVIDERS: ATTEND Internal Medicine Pulmonary Disease
DX: J44.9 Chronic obstructive pulmonary disease, unspecified (principal); I27.20 Pulmonary hypertension, unspecified

== ENCOUNTER 2019-06-01 15:10 | Inpatient (IN) | payer MEDICARE ==
[~2019-06-01] VITALS: Ht 177.8 cm; Wt 119.3 kg
[~2019-06-01 15:10] MED LIST changes: -K-TAB10 MEQ PO; +KLOR-CON M2020 MEQ PO; +LASIX40 MG PO; -LASIX80 MG PO; -REQUIP0.5 MG PO; +ROPINIROLE HCL0.5 MG PO
[2019-06-01 15:45] LABS: BASOPHILS 0.3 % (0-2); EOSINOPHILS 7.4 % (0-7); HEMATOCRIT 36.6 % (42.0-54.0); HEMOGLOBIN 11.4 g/dL (13.5-17.5); IMMATURE GRANULOCYTES 0.3 % (0-5); LYMPHOCYTES 12.3 % (15-50); MCHC 31.1 g/dL (31.0-37.0); MCV 83.6 fL (80.0-100.0); MEAN PLATELET VOLUME 9.5 fL (7.4-10.4); MONOCYTES 6.6 % (2-11); NEUTROPHILS 73.1 % (40-80); RBC 4.38 10x6/uL (4.20-6.10); WBC 7.5 10x3/uL (4.8-10.8)
[2019-06-01 15:48] LABS: PLATELET COUNT 227 10x3/uL (130-400)
--- NOTE | 2019-06-01 15:48 | NUR ---
BLOOD TO LAB
[2019-06-01] MEDS ORDERED: HYDRALAZINE HC100 MG PO (15:51)
[2019-06-01] MEDS ORDERED: HYDRALAZINE HCL50 MG PO (15:56)
[2019-06-01] MEDS ORDERED: GABAPENTIN100 MG PO (15:56)
[2019-06-01] MEDS ORDERED: ALBUTEROL SULF8.5 GM INH (15:59)
[2019-06-01] MEDS ORDERED: APAP325 MG PO (16:00)
[2019-06-01] MEDS ORDERED: TESSALON PERLE100 MG PO (16:01)
[2019-06-01] MEDS ORDERED: CATAPRES0.1 MG PO (16:04)
[2019-06-01] MEDS ORDERED: VITAMIN D31000 UNIT PO (16:07)
[2019-06-01] MEDS ORDERED: MECLIZINE HCL25 MG PO (16:08)
[2019-06-01] MEDS ORDERED: MIRALAX17 GM PO (16:08)
[2019-06-01] MEDS ORDERED: ULTRAM50 MG PO (16:09)
[2019-06-01 16:13] LABS: APTT 31.5 SECONDS (22.8-39.4); INR 1.18 (0.85-1.17); PROTIME 14.9 SECONDS (11.6-15.0)
[2019-06-01 16:41] LABS: CALC OSMOLALITY 299 mosm/kg (275-300); CARBON DIOXIDE 38.2 mmol/L (21.0-32.0); CHLORIDE - SERUM 103 mmol/L (98-107); CREATININE - SERUM 1.7 mg/dL (0.6-1.3); GLUCOSE 127 mg/dL (74-106); SODIUM 145 mmol/L (136-145); UREA NITROGEN 38 mg/dL (7-18); eGFR NON AFRICAN AMERICAN 43 mL/min (90-120)
[2019-06-01 16:47] VITALS: BP 128/61
[2019-06-01 17:08] LABS: ALBUMIN 3.3 g/dL (3.4-5.0); ALKALINE PHOSPHATASE 32 U/L (46-116); ALT (SGPT) 18 U/L (10-68); BILIRUBIN - TOTAL 0.42 mg/dL (0.2-1.3); CREATINE KINASE 60 UL (21-232); PRO BNP 944 pg/mL (0-125); PROTEIN - SERUM 6.5 g/dL (6.4-8.2); TROPONIN-I 0.027 ng/mL (0.000-0.060)
[2019-06-01 17:52] LABS: CKMB 0.7 U/L (0.0-3.6)
[2019-06-01 18:00] VITALS: BP 159/70
--- NOTE | 2019-06-01 18:25 | NUR ---
DR SANTIZO AWARE NO ORDERS FOR BLOOD CULTURES. VERBAL ORDER TO START ABX NOW.
--- NOTE | 2019-06-01 18:33 | NUR ---
REPORT GIVEN TO JAYLIN WYMAN
[2019-06-01 18:59] LABS: APPEARANCE CLEAR (CLEAR); BACTERIA FEW /hpf (NEGATIVE); BILIRUBIN NEGATIVE (NEGATIVE); COLOR YELLOW (YELLOW); GLUCOSE NEGATIVE (NEGATIVE); KETONE NEGATIVE (NEGATIVE); NITRITE NEGATIVE (NEGATIVE); PROTEIN 1+ mg/dL (NEGATIVE); RED CELLS - URINE OCC /hpf (0-5); UROBILINOGEN NORMAL (NORMAL); WHITE CELLS - URINE 0-5 /hpf (NEGATIVE)
[2019-06-01 19:06] VITALS: BP 169/81
--- NOTE | 2019-06-01 19:07 | NUR ---
ASSUMED CARE OF PATIENT, SITTING UP ON STRETCHER, NO COMPLAINTS AT THIS TIME. DIMINISHED BREATH SOUNDS RLL, ANTIBIOTICS INFUSING PER ORDER. CALL LIGHT WITHIN REACH, PATIENT ANSWERING QUESTIONS APPROPRIATELY. URINAL BEING USED, UIRNE OUTPUT 400CC OF DARK YELLOW CLEAR URINE.
[2019-06-01 20:03] VITALS: BP 168/72
--- NOTE | 2019-06-01 20:09 | NUR ---
ATTEMPTED TO CALL REPORT, THEY SAID THEY WOULD CALL ME BACK
[2019-06-01 20:45] VITALS: BP 181/95
--- NOTE | 2019-06-01 20:45 | NUR ---
ADMIT FROM ER VIA STRETCHER TO 2137 AND PT MOVED OVER TO BED AND ASSISTANCE WITH COMFORT BED LOWERED AND CALL LIGHT PROVIDED SRX3 LUNGS DEMINISHED O2 IN PLACE AT 2L
[2019-06-02 01:05] VITALS: BP 173/95
--- NOTE | 2019-06-02 02:28 | NUR ---
INSTRUCTED TO TREAT K+ PER EP BUT NOT ON MAR CORRECTLY I DID GIVE PT 40MEQ KCL
[2019-06-02 04:40] VITALS: BP 181/95; BMI 37.8
[2019-06-02 04:45] VITALS: BP 158/84
[2019-06-02 05:18] LABS: BASOPHILS 0.1 % (0-2); EOSINOPHILS 0.1 % (0-7); HEMATOCRIT 38.9 % (42.0-54.0); HEMOGLOBIN 12.1 g/dL (13.5-17.5); IMMATURE GRANULOCYTES 0.3 % (0-5); LYMPHOCYTES 8.3 % (15-50); MCH 25.9 pg (26.0-34.0); MCHC 31.1 g/dL (31.0-37.0); MCV 83.1 fL (80.0-100.0); MEAN PLATELET VOLUME 9.3 fL (7.4-10.4); MONOCYTES 2.6 % (2-11); NEUTROPHILS 88.6 % (40-80); PLATELET COUNT 226 10x3/uL (130-400); RBC 4.68 10x6/uL (4.20-6.10); RDW 14.9 % (11.5-14.5); WBC 6.9 10x3/uL (4.8-10.8)
[2019-06-02 05:58] LABS: % SATURATION 12 % (15-55); IRON 44 ug/dl (35-150); TOTAL IRON BIND CAPACITY 362 ug/dl (260-445); UNSAT IRON BIND CAPACITY 318 ug/dl (150-375)
[2019-06-02 06:00] LABS: CALCIUM 8.6 mg/dL (8.5-10.1); CARBON DIOXIDE 34.7 mmol/L (21.0-32.0); CREATININE - SERUM 1.7 mg/dL (0.6-1.3); MAGNESIUM - SERUM 1.7 mg/dL (1.8-2.4); PHOSPHOROUS 4.5 mg/dL (2.5-4.9)
[2019-06-02 06:14] LABS: POTASSIUM - SERUM 2.7 mmol/L (3.5-5.1)
--- NOTE | 2019-06-02 07:46 | NUR ---
REPORT RECEIVED FROM RUBBER PROCESS HAND ANDPATIENT CARE ASSUMED. PATIENT SITTING UP IN BED AWAKE, ALERT AND ORINETED X 4. PT DENIES ANY NEEDS OR PAIN. LIQUID STOOL COLLECTED FOR TESTING ORDERED. WILL CONITNUE WITH PLAN OF CARE. SR UP X 2 BED IN LOW POSITION AND CALL LIGHT IN REACH. FAMILY MEMBER AT BS.
[2019-06-02 10:21] VITALS: BP 179/94
[2019-06-02 14:52] VITALS: BP 150/77
[2019-06-02 15:02] VITALS: Ht 177.8 cm; Wt 119.3 kg
--- NOTE | 2019-06-02 15:16 | NUR ---
PATIENT IS STABLE AND VSS. PATIENT DENIES ANY NEEDS OR PAIN. WILL CONTINUE TO MONITOR. SR UP X 2 BED IN LOW POSITION AND CALL LIGHT IN REACH.
--- NOTE | 2019-06-02 15:17 | NUR ---
SPUTUM SPECIMEN ORDERED. PATIENT IS COUGHING RARELY AND IT IS NON PRODUCTIVE.
--- NOTE | 2019-06-02 18:04 | NUR ---
PATIENT SITTING UP IN BED EATING SUPPER. PATIENT IS STABLE AND VSS. PATIENT DENIES ANY NEEDS OR PAIN. WILL CONTINUE TO MONITOR. SR UP X 2 BED IN LOW POSITION AND CALL LIGHT IN REACH.
[2019-06-02 18:22] VITALS: BP 152/81
--- NOTE | 2019-06-02 19:15 | NUR ---
REPORT RECEIVED, WILL CONTINUE POC. PATIENT IS AAOX4, IN SEMI-FOWLERS POSITION. NO S/S OF DISTRES OBSERVED, RR EVEN AND UNLABORED ON 2L O2 VIA NC. PIV TO LT AC SL, PATENT, DRSG C/D/I. EMPTIED 700CC OF URINE FROM URINALS AT BEDSIDE. PATIENT DENIES FURTHER NEEDS AT THIS TIME. CL IN REACH, BED LOCKED AND LOWERED. WILL CTM.
[2019-06-03] VITALS (10 sets, daily range): BP systolic 142–202; BP diastolic 72–95
--- NOTE | 2019-06-03 02:54 | NUR ---
APRESOLINE GIVEN IV FOR BLOOD PRESSURE 189/82
--- NOTE | 2019-06-03 04:07 | NUR ---
I have reviewed this patient and I concur with the Shift Assessment completed by the Licensed Practical Nurse today this shift.
[2019-06-03 05:48] LABS: BASOPHILS 0.2 % (0-2); EOSINOPHILS 0.5 % (0-7); HEMATOCRIT 37.2 % (42.0-54.0); HEMOGLOBIN 11.3 g/dL (13.5-17.5); IMMATURE GRANULOCYTES 0.3 % (0-5); LYMPHOCYTES 10.7 % (15-50); MCH 25.7 pg (26.0-34.0); MCHC 30.4 g/dL (31.0-37.0); MCV 84.7 fL (80.0-100.0); MEAN PLATELET VOLUME 9.6 fL (7.4-10.4); MONOCYTES 3.5 % (2-11); NEUTROPHILS 84.8 % (40-80); PLATELET COUNT 201 10x3/uL (130-400); RBC 4.39 10x6/uL (4.20-6.10); RDW 15.1 % (11.5-14.5); WBC 5.8 10x3/uL (4.8-10.8)
--- NOTE | 2019-06-03 06:00 | NUR ---
PRN CATAPRES ADMINISTERED FOR BP 172/84
[2019-06-03 06:17] LABS: ANION GAP 7.2 mmol/L (8-16); CALCIUM 8.6 mg/dL (8.5-10.1); CARBON DIOXIDE 35.5 mmol/L (21.0-32.0); CREATININE - SERUM 1.8 mg/dL (0.6-1.3); MAGNESIUM - SERUM 2.5 mg/dL (1.8-2.4); POTASSIUM - SERUM 3.7 mmol/L (3.5-5.1)
--- NOTE | 2019-06-03 07:49 | NUR ---
PATIENT AWAKE AND ALERT THIS AM. IV TO THE LEFT AC IS SALINE LOCKED WITH NO REDNESS OR DISCOMFORT NOTED. O2 AT 2LPM IS NOTED. BED IS IN LOW POSTITIONA ND CALL LIGHT IS IN REACH. PATIENT DENIES ANY NEEDS AND OR PAIN AT THIS TIME
--- NOTE | 2019-06-03 19:10 | NUR ---
BEDSIDE REPORT RECEIVED FROM DAY SHIFT, PT CARE ASSUMED. INTRODUCED SELF AND WROTE NAME ON BOARD. PT SITTING UP ON BEDSIDE, WATCHING TV, AAOX4. REQUESTING SALTINE CRACKERS AND WATER, PROVIDED. 950 ML CLEAR YELLOW URINE EMPTIED FROM URINAL. DENIES ANY OTHER NEEDS AT THIS TIME. BED IN LOWEST POSITION, SR X1, CALL LIGHT AND URINAL WITHIN REACH. WILL CONTINUE TO MONITOR.
--- NOTE | 2019-06-03 23:12 | NUR ---
CATAPRESS GIVEN FOR B/P /84. PT ALERT AND ORIENTED x4
--- NOTE | 2019-06-03 23:48 | NUR ---
REASSESMENT FOR CATAPRESS BLOOD PRESSURE 189/82
[2019-06-04] VITALS (7 sets, daily range): BP systolic 133–214; BP diastolic 69–102
--- NOTE | 2019-06-04 01:31 | NUR ---
PT LYING IN BED RESTING WITH EYES CLOSED AND CPAP ON. EASILY AWAKEN WITH VERBAL STIMULI. CONTINENT OF BOWELL AND BLADDER. BOWELL SOUNDS ACTIVE x4. RESPIRATIONS EVEN AND UNLABORED. PT HAS NO COMPLAINTS OF PAIN AT THIS TIME. PT BLOOD PRESSURE IS 189/84. MAREN YEPEZ NOTIFIED. PT IS ALERT AND ORIENTED x4. WILL CONTINUE TO MONITOR.
--- NOTE | 2019-06-04 03:33 | NUR ---
BLOOD PRESSURE REASSESMENT 163/84
--- NOTE | 2019-06-04 04:31 | NUR ---
I have reviewed this patient and I concur with the Shift Assessment completed by the Licensed Practical Nurse today this shift.
--- NOTE | 2019-06-04 04:35 | NUR ---
REPOSITIONED PT. NO SIGNS OF DISTRESS. WILLCONTINUE TO MONITOR
--- NOTE | 2019-06-04 05:36 | NUR ---
PRN CLONIDINE GIVEN FOR BP 198/100. PT ALERT AND ORIENTED x4
[2019-06-04 06:35] LABS: BASOPHILS 0.2 % (0-2); EOSINOPHILS 0.3 % (0-7); HEMATOCRIT 39.3 % (42.0-54.0); HEMOGLOBIN 12.1 g/dL (13.5-17.5); IMMATURE GRANULOCYTES 0.6 % (0-5); LYMPHOCYTES 9.3 % (15-50); MCH 26.1 pg (26.0-34.0); MCHC 30.8 g/dL (31.0-37.0); MCV 84.7 fL (80.0-100.0); MEAN PLATELET VOLUME 9.6 fL (7.4-10.4); MONOCYTES 2.6 % (2-11); PLATELET COUNT 195 10x3/uL (130-400); RBC 4.64 10x6/uL (4.20-6.10); RDW 15.2 % (11.5-14.5); WBC 6.3 10x3/uL (4.8-10.8)
[2019-06-04 06:50] LABS: ANION GAP 6.3 mmol/L (8-16); CALCIUM 9.3 mg/dL (8.5-10.1); CARBON DIOXIDE 38.1 mmol/L (21.0-32.0); CREATININE - SERUM 1.7 mg/dL (0.6-1.3); MAGNESIUM - SERUM 2.2 mg/dL (1.8-2.4); POTASSIUM - SERUM 3.4 mmol/L (3.5-5.1)
--- NOTE | 2019-06-04 07:13 | NUR ---
NORVASAC PRN GIVEN FOR BLOOD PRESSURE 214/111. ALERT AND ORIENTED x4
--- NOTE | 2019-06-04 07:14 | NUR ---
REPORT RECEIVED. WILL CONTINUE WITH POC. PT CURRENTLY LYING SUPINE. CALL LIGHT W/I REACH. FSBS WAS 167@0700. ADMINISTERED 2 UNITS OF ORDERED INSULIN. RR EVEN AND UNLABORED ON 2L 02. L.AC PIV IS SALINE LOCKED. PT DENIES ANY NEEDS AT THIS TIME. NO S/S OF DISTRESS NOTED. WILL CTM.
--- NOTE | 2019-06-04 08:30 | NUR ---
PT SITTING ON SIDE OF BED. ALERT AND ORIENTED. NO SIGNS OR SYMPTOMS OF DISTRESS. RESPIRATIONS EVEN AND UNLABORED. NO SIGNS OR SYMPTOMS OF DISTRESS NOTED. PT IS ON 2L NASAL CANULA. LEFT AC IV DISCONTINUED WITH CATH INTACT. NO COMPLAINTS OF PAIN AT THIS TIME. UP WITH ASSIST. CONTINENT OF BOWELL AND BLADDER. USES URINAL. BOWELL SOUNDS ACTIVE x4. PT STATES LAST BM WAS 06/04/2019. ABDOMEN IS SOFT TO PALPATION. PT ENCOURAGED TO CALL FOR HELO WHEN GETTING IN AND OUT OF BED. CALL LIGHT IS WITH IN REACH AND BED IS IN LOWEST POSITION. WILL CONTINUE TO MONITOR
--- NOTE | 2019-06-04 11:45 | MORECARE ---
CASE MANAGEMENT DISCHARGE SUMMARY PATIENT: BANDAR NORTH UNIT: [id number] ADM DATE: 06/01/19 AGE: 68 : 48 SEX: M ROOM/BED: D.2138 AUTHOR: INGE DUDLEY PHYSICIAN: REFERRING PHYSICIAN: YRIS HERNANDEZ MD DATE OF SERVICE: 06/04/19 Discharge Plan Patient Name: BANDAR NORTH Facility: [facility]:[place] : 1950 Planned Disposition: Assisted Living Anticipated Discharge Date: Discharge Date: Expected LOS: Initial Reviewer: [email or web address] Initial Review Date: 06/04/2019 Generated: 06/04/19 12:44 pm Patient Name: BANDAR NORTH Page [phone] at 1145 All edits/amendments must be made on the electronic document DICTATION DATE: 06/04/19 1144 PARKING ENFORCEMENT SPECIALIST: ANGELINA 06/04/19 1144 RPT#: [id number] DC DATE: STATUS: ADM IN [facility] [address] [place] [address] END OF REPORT
--- NOTE | 2019-06-04 11:52 | MORECARE ---
CASE MANAGEMENT DISCHARGE SUMMARY PATIENT: BANDAR NORTH UNIT: [id number] ADM DATE: 06/01/19 AGE: 68 : 48 SEX: M ROOM/BED: D.2138 AUTHOR: INGE DUDLEY PHYSICIAN: REFERRING PHYSICIAN: YRIS HERNANDEZ MD DATE OF SERVICE: 06/04/19 Discharge Plan Patient Name: BANDAR NORTH Facility: [facility]:[place] : 1950 Planned Disposition: Assisted Living Anticipated Discharge Date: Discharge Date: Expected LOS: Initial Reviewer: [email or web address] Initial Review Date: 06/04/2019 Generated: 06/04/19 12:51 pm Comments DCP- Discharge Planning Updated by [email or web address]: Saba Cassidy on 06/04/19 10:[address] Patient Name: BANDAR NORTH Admission Status: ER Accout number: [id number] Admission Date: 06-01-2019 : 1950 Admission Diagnosis: Attending: YRIS HERNANDEZ Current LOS: 3 Anticipated DC Date: Planned Disposition: Assisted Living Primary Insurance: MEDICARE A & B Discharge Planning Comments: CM MET WITH PATIENT AFTER OBTAINING VERBAL CONSENT. STATES PLANS TO DC TO THE [facility] WHERE HE LIVES. DENIES NEEDS FOR HH, REHAB OR EQUIPMENT. CM TO FOLLOW AND ASSIST NEEDED. Field Identification Specialist: Saba Cassidy DCPIA - Discharge Planning Initial Assessment Updated by [email or web address]: Saba Cassidy on 06/04/19 11:45 am * Is the patient Alert and Oriented? Yes * PCP [facility]ERMA * Pharmacy [facility] * Preadmission Environment Assisted Living * Facility Name [facility] * ADLs Independent * Other Equipment CPAP, 02, PORT, NEBS, CANE, WALKER * Community resources currently utilized Assisted Living * Please name any agencies selected above. [facility] AND [facility]IENT. * Additional services required to return to the preadmission environment? No * Can the patient safely return to the preadmission environment? Yes * Has this patient been hospitalized within the prior 30 days at any hospital? No Last DP export: 06/04/19 10:44 a Patient Name: BANDAR NORTH Page [phone] at 1152 All edits/amendments must be made on the electronic document DICTATION DATE: 06/04/19 115 STORE DELI MANAGER: ANGELINA 06/04/19 115 RPT#: [id number] DC DATE: STATUS: ADM IN [address] [place] [address] END OF REPORT
--- NOTE | 2019-06-04 19:15 | NUR ---
PT SITTING ON SIDE OF BED ALERT AND ORIENTED x4. NO SIGNS OR SYMPTOMS OF DISTRESS. RESPIRATIONS EVEN AND UNLABORED. NASAL CANULA @3L. CONTINENT OF BOWELL AND URINE. STATES THAT LAST BOWELL MOVEMENT WAS ON 06/03/19 BUT REQUEST FOR A LAXITIVE. ABDOMEN IS SOFT TO TOUCH AND PT COMPLAINS OF NO PAIN AT THIS TIME. WILL CONTINUE TO MONITOR
[2019-06-05] VITALS: BP 172/92
[2019-06-05 04:00] VITALS: BP 187/92
[2019-06-05 06:06] LABS: BASOPHILS 0.1 % (0-2); EOSINOPHILS 0 % (0-7); HEMATOCRIT 38.7 % (42.0-54.0); HEMOGLOBIN 12.1 g/dL (13.5-17.5); IMMATURE GRANULOCYTES 0.4 % (0-5); MCH 26.1 pg (26.0-34.0); MCHC 31.3 g/dL (31.0-37.0); MCV 83.4 fL (80.0-100.0); MEAN PLATELET VOLUME 9.1 fL (7.4-10.4); MONOCYTES 2.7 % (2-11); NEUTROPHILS 88.8 % (40-80); PLATELET COUNT 175 10x3/uL (130-400); RBC 4.64 10x6/uL (4.20-6.10); RDW 15.1 % (11.5-14.5); WBC 6.7 10x3/uL (4.8-10.8)
[2019-06-05 06:38] LABS: CALCIUM 9.1 mg/dL (8.5-10.1); CARBON DIOXIDE 34.3 mmol/L (21.0-32.0); CREATININE - SERUM 1.3 mg/dL (0.6-1.3); MAGNESIUM - SERUM 2.1 mg/dL (1.8-2.4); POTASSIUM - SERUM 3.3 mmol/L (3.5-5.1)
--- NOTE | 2019-06-05 06:48 | NUR ---
PRN CLONIDINE GIVEN FOR 189/95 BLOOD PRESSURE PT ALERT AND ORIENTEDx4 NO SIGNS OR SYMPTOMS OF DISTRESS.
--- NOTE | 2019-06-05 07:08 | NUR ---
I have reviewed this patient and I concur with the Shift Assessment completed by the Licensed Practical Nurse today this shift.
--- NOTE | 2019-06-05 07:31 | NUR ---
PT AWAKE AND ORIENTED, VERY [place]. NO COMPLAINTS/CONCERNS, B/P ELEVATED, TX BY THERAPIST RESPIRATORY WILL REEVALUATE. ALL QUESTIONS ANSWERED TO THE BEST OF MY ABILITY. NO FAMILY PRESENT AT BEDSIDE. CL INR EACH, SRX2.
[2019-06-05 08:53] VITALS: BP 178/93
[2019-06-05 12:09] VITALS: BP 125/76
--- NOTE | 2019-06-05 15:01 | NUR ---
I have reviewed this patient and I concur with the Shift Assessment completed by the Licensed Practical Nurse today this shift.
[2019-06-05 16:52] VITALS: BP 142/80
--- NOTE | 2019-06-05 17:19 | NUR ---
PT ALERT AND ORIETNED, NO COMPLAINTS OR CONCERNS. NO FAMILY AT BEDSIDE. CLIN REACH, SRX2.
[2019-06-05 20:00] VITALS: BP 158/83
--- NOTE | 2019-06-05 20:13 | NUR ---
RECEIVED UP IN BED WITH EYES OPEN AND CPAP ON. ALERT AND ORIENTED X4. UP WITH ASSIST. IV TO RIGHT FA WITH NS INFUSING AT 100CC/HR. TELEMETRY IN PLACE. PACEMAKER TO LEFT CHEST. DENIES ANY NEEDS AT THIS TIME.
[2019-06-06] VITALS (7 sets, daily range): BP systolic 112–177; BP diastolic 71–89
[2019-06-06 07:12] LABS: BASOPHILS 0.3 % (0-2); EOSINOPHILS 2.9 % (0-7); HEMOGLOBIN 12.8 g/dL (13.5-17.5); IMMATURE GRANULOCYTES 0.4 % (0-5); LYMPHOCYTES 22.3 % (15-50); MCH 25.8 pg (26.0-34.0); MCHC 30.5 g/dL (31.0-37.0); MCV 84.7 fL (80.0-100.0); MEAN PLATELET VOLUME 9.8 fL (7.4-10.4); MONOCYTES 6.7 % (2-11); NEUTROPHILS 67.4 % (40-80); PLATELET COUNT 198 10x3/uL (130-400); RBC 4.96 10x6/uL (4.20-6.10); RDW 15.2 % (11.5-14.5); WBC 6.9 10x3/uL (4.8-10.8)
[2019-06-06 07:19] LABS: ANION GAP 5.3 mmol/L (8-16); CARBON DIOXIDE 38.1 mmol/L (21.0-32.0); CREATININE - SERUM 1.3 mg/dL (0.6-1.3); POTASSIUM - SERUM 3.4 mmol/L (3.5-5.1)
--- NOTE | 2019-06-06 07:19 | NUR ---
PT AWAKE AND ORIENTED, SITTING ON SIDE OF BED. PLESANT MOOD. NO COMPLAINTS OR CONCERNS AT THIS TIME. CL IN REACH, SRX2.
--- NOTE | 2019-06-06 09:53 | NUR ---
I have reviewed this patient and I concur with the Shift Assessment completed by the Licensed Practical Nurse today this shift.
[2019-06-06 16:17] LABS: POTASSIUM - SERUM 3.7 mmol/L (3.5-5.1)
--- NOTE | 2019-06-06 17:01 | NUR ---
PT AWAKE AND ORIENTED. SITTING ON SIDE OF BED. I/V RESITED TO RIGHT FROREARM 18G. NO COPMLAINTS/CONCERNS AT THIS TIME. ALL QUESTIONS ANSERED TO THE BEST OF MY ABIITY. CL INR EACH, SRX2.
--- NOTE | 2019-06-06 19:17 | NUR ---
RECEIVED SITTING UP ON SIDE OF BED. ALERT AND ORIENTED X4. UP WITH ASSIST. O2@ 2 LITERS PER N/C IN PLACE. IV TO RIGHT FA WITH DSG CDI. NO REDNESS OR SWELLING TO SITE. DENIES ANY PAIN OR NEEDS AT THIS TIME.
[2019-06-07 04:39] VITALS: BP 164/77
[2019-06-07 05:27] LABS: BASOPHILS 0.2 % (0-2); EOSINOPHILS 4.2 % (0-7); HEMATOCRIT 37.3 % (42.0-54.0); HEMOGLOBIN 11.2 g/dL (13.5-17.5); IMMATURE GRANULOCYTES 0.3 % (0-5); LYMPHOCYTES 15.4 % (15-50); MCH 25.6 pg (26.0-34.0); MCV 85.4 fL (80.0-100.0); MEAN PLATELET VOLUME 9.6 fL (7.4-10.4); MONOCYTES 8.1 % (2-11); NEUTROPHILS 71.8 % (40-80); PLATELET COUNT 181 10x3/uL (130-400); RBC 4.37 10x6/uL (4.20-6.10); RDW 15.3 % (11.5-14.5); WBC 5.9 10x3/uL (4.8-10.8)
[2019-06-07 05:38] LABS: ANION GAP 5.3 mmol/L (8-16); CALCIUM 8.4 mg/dL (8.5-10.1); CARBON DIOXIDE 37.1 mmol/L (21.0-32.0); CREATININE - SERUM 1.4 mg/dL (0.6-1.3); POTASSIUM - SERUM 3.4 mmol/L (3.5-5.1)
--- NOTE | 2019-06-07 08:42 | NUR ---
REPORT RECIEVED. PT LYING ON RIGHT SIDE, RR EVEN AND UNLABORED CURRENTLY WEARING HIS BIPAP. HE HAS A R FA PIV THAT IS SL. BED LOCKED AND IN LOWEST POSITION, CALL LIGHT WITHIN REACH. WILL CTM
[2019-06-07 08:43] VITALS: BP 143/80
[2019-06-07 12:29] VITALS: BP 126/75
[2019-06-07] MEDS ORDERED: NORVASC10 MG PO (14:30)
[2019-06-07] MEDS ORDERED: PULMICORT0.5 MG/21 UPD (14:32)
[2019-06-07] MEDS ORDERED: PREDNISONE10 MG PO (14:33)
--- NOTE | 2019-06-07 16:05 | NUR ---
REPORT CALLED TO JACQUES AT THE [facility]
--- NOTE | 2019-06-07 16:21 | MORECARE ---
CASE MANAGEMENT DISCHARGE SUMMARY PATIENT: BANDAR NORTH UNIT: [id number] ADM DATE: 06/01/19 AGE: 68 : 46 SEX: M ROOM/BED: D.2138 AUTHOR: OCTAVIA,DOC PHYSICIAN: REFERRING PHYSICIAN: YRIS HERNANDEZ MD DATE OF SERVICE: 06/07/19 Discharge Plan Patient Name: BANDAR NORTH Facility: [facility]:Hazel Hurst : 1950 Planned Disposition: Assisted Living Anticipated Discharge Date: Discharge Date: Expected LOS: Initial Reviewer: [email or web address] Initial Review Date: 06/04/2019 Generated: 06/07/19 5:20 pm Comments DCP- Discharge Planning Updated by [email or web address]: Rach Delaney on 06/07/19 3:[address] Final DC PLAN: [facility]. DC PLAN Received. CM met with patient to discuss dc. His plan is to return to the [facility]. CM spoke to [facility] the [facility] who stated she would send the vacuum truck driver to the hospital for transport back to the [facility]. They will bring his portable O2 with them. Patient agreeable with plan. DC IMM delivered, explained, signed by the patient, and placed in his chart. Signed form also left with patient. Patient denied further dc needs at this time. Rach Delaney RN, [facility] DCP- Discharge Planning Updated by [email or web address]: Saba Cassidy on 06/04/19 10:[address] Patient Name: BANDAR NORTH Admission Status: ER Accout number: [id number] Admission Date: 06-01-2019 : 1950 Admission Diagnosis: Attending: YRIS HERNANDEZ Current LOS: 3 Anticipated DC Date: Planned Disposition: Assisted Living Primary Insurance: MEDICARE A & B Discharge Planning Comments: CM MET WITH PATIENT AFTER OBTAINING VERBAL CONSENT. STATES PLANS TO DC TO THE [facility] WHERE HE LIVES. DENIES NEEDS FOR HH, REHAB OR EQUIPMENT. CM TO FOLLOW AND ASSIST NEEDED. Explosive Ordnance Handler: Saba Cassidy DCPIA - Discharge Planning Initial Assessment Updated by [id number]: Saba Cassidy on 06/04/19 11:45 am * Is the patient Alert and Oriented? Yes * PCP [facility] * Pharmacy [facility] * Preadmission Environment Assisted Living * Facility Name [facility] * ADLs Independent * Other Equipment CPAP, 02, PORT, NEBS, CANE, WALKER * Community resources currently utilized Assisted Living * Please name any agencies selected above. [facility] AND [facility] PATIENT. * Additional services required to return to the preadmission environment? No * Can the patient safely return to the preadmission environment? Yes * Has this patient been hospitalized within the prior 30 days at any hospital? No Coverage Notice Reviewer: [id number] - Rach Delaney Notice Issued Date-Time: 06/07/2019 15:30 Notice Type: IM Discharge Notice Notice Delivered To: Patient Relationship to Patient: Milieu Therapist Name: Delivery Method: HAND - Hand Delivered Radha Days: Prior Verbal Notification: Recipient Understood Notice: Yes Recipient Signature: Yes Med Rec Note Co-signed by Attending: Coverage Notice Comment: DC IMM delivered, explained, signed by the patient, and placed in his chart. Signed form also left with patient. Rach Delaney RN , [facility] Last DP export: 06/04/19 10:52 a Patient Name: BANDAR NORTH Page [id number] at 1621 All edits/amendments must be made on the electronic document DICTATION DATE: 06/07/191619 FORKLIFT MECHANIC: ANGELINA 06/07/191619 RPT#: [id number] DC DATE: STATUS: ADM IN [facility] [address] [place] [address] END OF REPORT
--- NOTE | 2019-06-07 17:00 | NUR ---
JAMIL PAPEROWRK GONE OVER AND SIGNED WITH PT. ALL QUESTIONS ANSWERED. PIV REMOVED, CATH TIP FULLY INTACT. ALL VALUBLES PACKED UP AND TAKEN WITH PT. [facility] HERE TO TAKE PT BACK TO [facility].
--- NOTE | 2019-06-07 17:24 | NUR ---
I have reviewed this patient and I concur with the Shift Assessment completed by the Licensed Practical Nurse today this shift.
== END 2019-06-07 17:29 | disposition home or self-care (01) | DRG 291 ==
LOC: D.ER 15:10 → D.M2 18:39
PROVIDERS: Family Medicine; ADMIT Internal Medicine Nephrology; ATTEND Internal Medicine Nephrology
DX: I11.0 Hypertensive heart disease with heart failure (principal); J96.22 Acute and chronic respiratory failure with hypercapnia; J96.21 Acute and chronic respiratory failure with hypoxia; J44.1 Chronic obstructive pulmonary disease with (acute) exacerbation; N17.9 Acute kidney failure, unspecified; I50.33 Acute on chronic diastolic (congestive) heart failure; E87.6 Hypokalemia; D64.9 Anemia, unspecified; E11.9 Type 2 diabetes mellitus without complications; E78.5 Hyperlipidemia, unspecified; G47.33 Obstructive sleep apnea (adult) (pediatric); K21.9 Gastro-esophageal reflux disease without esophagitis; F32.9 Major depressive disorder, single episode, unspecified; G89.29 Other chronic pain; M54.9 Dorsalgia, unspecified

== ENCOUNTER 2020-09-17 15:53 | Emergency (ER) | payer MEDICARE ==
[~2020-09-17] VITALS: Ht 177.8 cm; Wt 119.1 kg
[~2020-09-17 15:53] MED LIST changes: +ALBUTEROL SULF8.5 GM INH; +APAP325 MG PO; +GABAPENTIN100 MG PO; +HYDRALAZINE HC100 MG PO; +MECLIZINE HCL25 MG PO; +MIRALAX17 GM PO; +PREDNISONE10 MG PO; +PULMICORT0.5 MG/21 UPD; +ULTRAM50 MG PO; +VITAMIN D31000 UNIT PO
[2020-09-17 15:57] VITALS: Ht 177.8 cm; Wt 119.1 kg
[2020-09-17 16:31] LABS: BILIRUBIN NEGATIVE (NEGATIVE); KETONE NEGATIVE (NEGATIVE); NITRITE NEGATIVE (NEGATIVE); UROBILINOGEN NORMAL mg/dL (< 2)
[2020-09-17 16:42] LABS: BASOPHILS 0.1 % (0-2); EOSINOPHILS 3.5 % (0-7); HEMOGLOBIN 9.8 g/dL (13.5-17.5); IMMATURE GRANULOCYTES 0.3 % (0-5); LYMPHOCYTE ABS# 0.66 10x3/uL (1.32-3.57); LYMPHOCYTES 9.5 % (15-50); MCHC 30.6 g/dL (31.0-37.0); MCV 84.9 fL (80.0-100.0); MEAN PLATELET VOLUME 9.5 fL (7.4-10.4); MONOCYTES 8.8 % (2-11); NEUTROPHIL ABS# 5.41 10x3/uL (1.78-5.38); NEUTROPHILS 77.8 % (40-80); PLATELET COUNT 153 10x3/uL (130-400); RBC 3.77 10x6/uL (4.20-6.10); RDW 15.6 % (11.5-14.5)
[2020-09-17 17:09] LABS: ANION GAP 11.9 mmol/L (8-16); CALCIUM 9.6 mg/dL (8.5-10.1); CARBON DIOXIDE 29.1 mmol/L (21.0-32.0)
[2020-09-17 17:12] LABS: ALBUMIN 3.5 g/dL (3.4-5.0); BILIRUBIN - TOTAL 0.44 mg/dL (0.2-1.3); PROTEIN - SERUM 6.7 g/dL (6.4-8.2)
[2020-09-17 21:14] VITALS: BP 155/62
== END 2020-09-17 21:14 | disposition home or self-care (01) ==
LOC: D.ER 15:53
PROVIDERS: Family Medicine
DX: M54.16 Radiculopathy, lumbar region (principal); E11.9 Type 2 diabetes mellitus without complications; I11.0 Hypertensive heart disease with heart failure; I50.9 Heart failure, unspecified; J44.9 Chronic obstructive pulmonary disease, unspecified; G25.81 Restless legs syndrome

== ENCOUNTER → 2020-10-19 09:52 | Outpatient (CLI) | payer MEDICARE ==
[2020-09-17 15:57] VITALS: BMI 37.6
== END | disposition home or self-care (01) ==
LOC: D.NM 09:52
PROVIDERS: ATTEND Nurse Practitioner Gerontology
DX: E21.5 Disorder of parathyroid gland, unspecified (principal)